=== PATIENT | female | born 1955 | race Caucasian/White ===

== ENCOUNTER 2017-12-12 14:47 | Inpatient (IN) ==
--- NOTE | 2017-12-12 15:13 | Emergency Department Report ---
SOB HPI - General Chief Complaint: Shortness of Breath/Dyspnea <Dexter Pugh Q - 12/13/17 06:28 > Stated Complaint: soa <Dexter Pugh Q - 12/13/17 06:28> Time Seen by Provider: 12/12/17 15:07 <Dexter Pugh Q - 12/13/17 06:28> Source: patient <Kaylee Castle - 12/12/17 15:13> - History of Present Illness Patient is a 62-year-old female who presents to the emergency room with her or shortness of breath. On presentation her O2 sat is 81%. With 4 L she comes up to 90%. At home she usually only uses oxygen at night with her CPAP, although reports for the past 2 months she has been using some oxygen off and on during the day. 5-6 days ago she had a 24-hour "GI bug" with nausea and vomiting. Since that time, she has had decreasing strength, increasing shortness of breath and body aches. She's had chills and felt hot and cold. She states she's been trying to drink but has not been eating much. She complains of some chest tightness as well. Her states that at home with exertion her O2 sat will drop down to 81%. She has a neuroendocrine cancer diagnosed in May 2017. She had a tumor removed in the infrahilar region. She has finished chemotherapy approximately a month ago. She has one radiation treatment left which she explains as a preventative radiation to her brain. <Kaylee Castle - 12/12/17 23:49> Complaint: shortness of breath <Kaylee Castle - 12/12/17 23:49> - Related Data Home oxygen amount: 2 liters (with CPAP at bedtime) <Kaylee Castle - 12/12/17 23:49> Home Medications Medication Instructions Recorded Confirmed Alendronate [Fosamax] 70 mg PO DAVILA #0 08/20/10 12/12/17 Albuterol Sulfate [Proair Hfa] 1 puff INH Q4H PRN 05/31/17 12/12/17 Ascorbic Acid [Vitamin C] 1,000 mg PO DAILY 05/31/17 12/12/17 Aspirin [Adult Low Dose Aspirin EC] 81 mg PO HS 05/31/17 12/12/17 Cholecalciferol (Vitamin D3) 1,000 unit PO DAILY 05/31/17 12/12/17 [Vitamin D3] Dabigatran [Pradaxa] 150 mg PO BID 05/31/17 12/12/17 Fluticasone Nasal [place] [Flonase] 1 spray EA NOSTRIL HS 05/31/17 12/12/17 Fluticasone/Salmeterol 500/50 1 puff INH BID 05/31/17 12/12/17 [Advair 500-50Diskus] Levothyroxine Tab [Synthroid] 150 mcg PO HS 05/31/17 12/12/17 Metoprolol Succinate (XL) [Toprol 50 mg PO HS 05/31/17 12/12/17 Xl] Montelukast Sodium [Singulair] 10 mg PO DAILY 05/31/17 12/12/17 Simvastatin 20 mg PO HS 05/31/17 12/12/17 Tiotropium [place] [Spiriva 1 puff INH DAILY 05/31/17 12/12/17 Respimat] LORazepam [Lorazepam] 1 mg PO Q8H PRN 12/12/17 12/12/17 Ondansetron HCl 8 mg PO TID PRN 12/12/17 12/12/17 <Dexter Pugh Q - 12/13/17 06:28> Allergies Allergy/AdvReac Type Severity Reaction Status Date / Time Penicillins Allergy Unknown Verified 12/12/17 15:10 <Dexter Pugh Q - 12/13/17 06:28> Review of Systems All systems: reviewed and negative except as stated (shortness of breath, chills , body aches, weakness, chest tightness off and on) <Kaylee Castle - 12/12/17 23:49> [facility] Patient Stated Medical History Transient Ischemic Attacks ( Yes: 2016 TIA) Cataracts Yes Cardiac Arrhythmia Yes: AFIB Myocardial Infarction Yes: 1993 and 2002 Chronic Obstructive Pulmonary Yes Disease (COPD) Pneumonia Yes Hiatal Hernia Yes Hx Urinary Tract Infection Yes Clotting Problems Yes: PRADAXA Osteoarthritis Yes: HANDS <Dexter Pugh Q - 12/13/17 06:28> Surgical History: Lymph node biopsy from left chest-05/2017 <Kaylee Castle - 15:13> - Social History Smoking status: Former smoker (quit "a long time ago") [facility]> Substance use type: does not use <[facility] 12/12/17 15:13> Alcohol intake frequency: does not drink <Kaylee Castle 12/12/17 15:13> Household members: spouse <[facility] 12/12/17 23:49> Current occupational status: retired <[facility] 12/12/17 23:49> Current residence: Apartment/Private Home <[facility] 12/12/17 23:49> Social history: PCP-Dr. Arnold Oil Filters Inspector-Dr. Santizo Medical Receptionist Assistant-Dr. Santizo Elementary Tutor-Dr. Araceli Paiz Oncologist-Dr. Jaya López <[facility] 12/12/17 23:49> Physical Exam - Limitations Limitations: no limitations (conversational dyspnea) <[facility] 23:49> - General General appearance: in no apparent distress (some respiratory distress) < [facility] - Normal Exams: Head:: Normocephalic without trauma <[facility] 12/12/17 23:49> Eyes:: Pupils are PERRLA w/ EOMI <[facility] 12/12/17 23:49> Neck:: Full range of motion, without adenopathy <[facility] 12/12/17 23: 49> Abdomen:: soft, non-tender, non-distended <[facility] 12/12/17 23:49> Integumentary:: No rashes <[facility] 12/12/17 23:49> Neurological:: Patient is alert, and oriented, exams w/o gross deficits < [facility] 12/12/17 23:49> Psychiatric:: Patient exhibits, appropriate attention, emotion and affect < [facility] 12/12/17 23:49> - Respiratory Respiratory exam: Present: respiratory distress, wheezes, other (decreased breath sounds). Absent: normal lung sounds bilaterally <Kaylee Castle - 12/12 23:49> - Cardiovascular Cardiovascular exam: Present: tachycardia, irregular rhythm <Kaylee Castle - 12/12/17 23:49> - Extremities Exam Extremities exam: Absent: pedal edema <Kaylee Castle - 12/12/17 23:49> Course Vital Signs Temperature 98.4 F 12/12/17 14:55 Pulse Rate 134 H 12/12/17 14:55 Respiratory Rate 30 H 12/12/17 14:55 Blood Pressure 166/81 H 12/12/17 14:55 Pulse Oximetry 81 L 12/12/17 14:55 Temperature 98.4 F 12/12/17 14:55 Pulse Rate 71 12/13/17 02:00 Respiratory Rate 18 12/13/17 05:06 Blood Pressure 127/64 12/13/17 02:00 Pulse Oximetry 94 12/13/17 05:06 <Dexter Pugh - 12/13/17 06:28> Vital Signs Temperature 98.4 F 12/12/17 14:55 Pulse Rate 134 H 12/12/17 14:55 Respiratory Rate 30 H 12/12/17 14:55 Blood Pressure 166/81 H 12/12/17 14:55 Pulse Oximetry 81 L 12/12/17 14:55 Temperature 98.4 F 12/12/17 14:55 Pulse Rate 71 12/13/17 02:00 Respiratory Rate 18 12/13/17 05:06 Blood Pressure 127/64 12/13/17 02:00 Pulse Oximetry 94 12/13/17 05:06 <Kaylee Castle - 12/12/17 15:32> Shortness of Breath/Dyspnea - MDM Narrative Medical decision making narrative: Patient with exacerbation of her COPD and respiratory failure with hypoxia. Respiratory panel negative. She was given Solu -Medrol 125 mg in the ED and 2 DuoNeb treatments with minimal improvement. She was given labetalol 10 for a-fib with RVR with rates in the 140s. Her rate decreased to 100 following the labetalol. Given her respiratory failure and decline, she was admitted inpatient to the hospitalist service. <Kaylee Castle - 12/12/17 23:49> - Lab Data Attestation: I reviewed the patient's lab results. <Kaylee Castle L - 12/12/17 23:49> Result diagrams: 12/13/17 04:12 12/13/17 04:12 <Dexter Pugh Q - 12/13/17 06:28> Lab Results 12/12/17 12/12/17 12/12/17 Range/Units 15:39 16:16 16:16 WBC 7.4 (4.5-11.0) T/MM3 RBC 3.31 L (4.00-5.20) M/MM3 Hgb 10.8 L (12-16) GM/DL Hct 33.7 L (36-46) % MCV 101.8 H (80-100) UM3 MCH 32.6 (26-34) UUG MCHC 32.0 (31-37) GM/DL RDW Std Deviation 51.2 H (36.9-50.2) FL Plt Count 202 (130-400) T/MM3 MPV 9.2 L (9.4-12.4) UM3 Immature Gran % (Auto) 0.3 (0.0-0.5) % Neut % (Auto) 76.9 H (33-66) % Lymph % (Auto) 8.7 L (23-45) % [place] % (Auto) 12.2 H (0-9.0) % Eos % (Auto) 1.6 (0-4) % Baso % (Auto) 0.3 (0-2) % Neut # (Auto) 5.7 (1.8-7.7) T/MM3 Lymph # (Auto) 0.7 L (1-4.8) T/MM3 [place] # (Auto) 0.9 H (0-0.8) T/MM3 Eos # (Auto) 0.1 (0-0.5) T/MM3 Baso # (Auto) 0.0 (0-0.2) T/MM3 Abs Immat Gran (auto) 0.02 (0.00-0.03) T/MM3 Turbidity < 20 (0-20) Sodium 135 (134-144) MEQ/L Potassium 4.6 (3.6-5) MEQ/L Chloride 93 L (98-107) MEQ/L Carbon Dioxide 31 H (22-30) MEQ/L Anion Gap 11 (5-15) MEQ/L BUN 11.0 (7-17) MG/DL Creatinine 0.6 L (0.7-1.2) mg/dL GFR Calculation 101 BUN/Creatinine Ratio 18 (6-26) RATIO Glucose 121 H (65-110) MG/DL Calculated Osmolality 260 L (261-280) MOSM/KG Calcium 10.3 H (8.4-10.2) MG/DL Total Bilirubin 0.60 (0.20-1.30) MG/DL Icterus Index < 2 (0-7) AST 27 (14-36) U/L ALT 27 (9-52) U/L Alkaline Phosphatase 103 (38-126) U/L Troponin I < 0.012 (0-0.12) ng/ml NT-Pro-B Natriuret Pep 1890 H (0-175) pg/mL Total Protein 7.7 (6.3-8.2) g/dL Albumin 4.3 (3.5-5.0) g/dL Globulin 3.4 (2.4-3.6) G/DL Albumin/Globulin Ratio 1.3 (1.1-2.2) RATIO Specimen Hemolysis 63 H (0-25) Ur Collection Type Urine Color (YELLOW) Urine Clarity Urine pH (5.0-8.0) Ur Specific [place] (1.015-1.025) Urine Protein (NEGATIVE) Urine Glucose (UA) (NEGATIVE) Urine Ketones (NEGATIVE) Urine Occult Blood (NEGATIVE) Urine Nitrate (NEGATIVE) Urine Bilirubin (NEGATIVE) Urine Urobilinogen (NORMAL) EU/DL Ur Leukocyte Esterase (NEGATIVE) Urinalysis Comment Adenovirus (PCR) Negative (Negative) B.parapertussis DNA PCR Negative (Negative) C. pneumoniae DNA (PCR) Negative (Negative) Coronavirus OC43 (PCR) Negative (Negative) Coronavirus HKU1 (PCR) Negative (Negative) Coronavirus 229E (PCR) Negative (Negative) Coronavirus NL63 (PCR) Negative (Negative) Human Metapneumovir PCR Negative (Negative) Influenza Type A (PCR) Negative (Negative) Influenza Type B (PCR) Negative (Negative) M. pneumoniae (PCR) Negative (Negative) Parainfluenza 1 (PCR) Negative (Negative) Parainfluenza 2 (PCR) Negative (Negative) Parainfluenza 3 (PCR) Negative (Negative) Parainfluenza 4 (PCR) Negative (Negative) RSV (PCR) Negative (Negative) Entero/Rhino (PCR) Negative (Negative) 12/12/17 Range/Units 17:25 WBC (4.5-11.0) T/MM3 RBC (4.00-5.20) M/MM3 Hgb (12-16) GM/DL Hct (36-46) % MCV (80-100) UM3 MCH (26-34) UUG MCHC (31-37) GM/DL RDW Std Deviation (36.9-50.2) FL Plt Count (130-400) T/MM3 MPV (9.4-12.4) UM3 Immature Gran % (Auto) (0.0-0.5) % Neut % (Auto) (33-66) % Lymph % (Auto) (23-45) % [place] % (Auto) (0-9.0) % Eos % (Auto) (0-4) % Baso % (Auto) (0-2) % Neut # (Auto) (1.8-7.7) T/MM3 Lymph # (Auto) (1-4.8) T/MM3 [place] # (Auto) (0-0.8) T/MM3 Eos # (Auto) (0-0.5) T/MM3 Baso # (Auto) (0-0.2) T/MM3 Abs Immat Gran (auto) (0.00-0.03) T/MM3 Turbidity (0-20) Sodium (134-144) MEQ/L Potassium (3.6-5) MEQ/L Chloride (98-107) MEQ/L Carbon Dioxide (22-30) MEQ/L Anion Gap (5-15) MEQ/L BUN (7-17) MG/DL Creatinine (0.7-1.2) mg/dL GFR Calculation BUN/Creatinine Ratio (6-26) RATIO Glucose (65-110) MG/DL Calculated Osmolality (261-280) MOSM/KG Calcium (8.4-10.2) MG/DL Total Bilirubin (0.20-1.30) MG/DL Icterus Index (0-7) AST (14-36) U/L ALT (9-52) U/L Alkaline Phosphatase (38-126) U/L Troponin I (0-0.12) ng/ml NT-Pro-B Natriuret Pep (0-175) pg/mL Total Protein (6.3-8.2) g/dL Albumin (3.5-5.0) g/dL Globulin (2.4-3.6) G/DL Albumin/Globulin Ratio (1.1-2.2) RATIO Specimen Hemolysis (0-25) Ur Collection Type Urine, void-cc/notcc Urine Color Yellow (YELLOW) Urine Clarity Clear Urine pH 6.0 (5.0-8.0) Ur Specific [place] 1.020 (1.015-1.025) Urine Protein Trace A (NEGATIVE) Urine Glucose (UA) Negative (NEGATIVE) Urine Ketones 1+ A (NEGATIVE) Urine Occult Blood Negative (NEGATIVE) Urine Nitrate Negative (NEGATIVE) Urine Bilirubin Negative (NEGATIVE) Urine Urobilinogen 0.2 (NORMAL) EU/DL Ur Leukocyte Esterase Negative (NEGATIVE) Urinalysis Comment Microscopic not ind. Adenovirus (PCR) (Negative) B.parapertussis DNA PCR (Negative) C. pneumoniae DNA (PCR) (Negative) Coronavirus OC43 (PCR) (Negative) Coronavirus HKU1 (PCR) (Negative) Coronavirus 229E (PCR) (Negative) Coronavirus NL63 (PCR) (Negative) Human Metapneumovir PCR (Negative) Influenza Type A (PCR) (Negative) Influenza Type B (PCR) (Negative) M. pneumoniae (PCR) (Negative) Parainfluenza 1 (PCR) (Negative) Parainfluenza 2 (PCR) (Negative) Parainfluenza 3 (PCR) (Negative) Parainfluenza 4 (PCR) (Negative) RSV (PCR) (Negative) Entero/Rhino (PCR) (Negative) <Dexter Pugh Q - 12/13/17 06:28> Lab Results 12/12/17 12/12/17 12/12/17 Range/Units 15:39 16:16 16:16 WBC 7.4 (4.5-11.0) T/MM3 RBC 3.31 L (4.00-5.20) M/MM3 Hgb 10.8 L (12-16) GM/DL Hct 33.7 L (36-46) % MCV 101.8 H (80-100) UM3 MCH 32.6 (26-34) UUG MCHC 32.0 (31-37) GM/DL RDW Std Deviation 51.2 H (36.9-50.2) FL Plt Count 202 (130-400) T/MM3 MPV 9.2 L (9.4-12.4) UM3 Immature Gran % (Auto) 0.3 (0.0-0.5) % Neut % (Auto) 76.9 H (33-66) % Lymph % (Auto) 8.7 L (23-45) % [place] % (Auto) 12.2 H (0-9.0) % Eos % (Auto) 1.6 (0-4) % Baso % (Auto) 0.3 (0-2) % Neut # (Auto) 5.7 (1.8-7.7) T/MM3 Lymph # (Auto) 0.7 L (1-4.8) T/MM3 [place] # (Auto) 0.9 H (0-0.8) T/MM3 Eos # (Auto) 0.1 (0-0.5) T/MM3 Baso # (Auto) 0.0 (0-0.2) T/MM3 Abs Immat Gran (auto) 0.02 (0.00-0.03) T/MM3 Turbidity < 20 (0-20) Sodium 135 (134-144) MEQ/L Potassium 4.6 (3.6-5) MEQ/L Chloride 93 L (98-107) MEQ/L Carbon Dioxide 31 H (22-30) MEQ/L Anion Gap 11 (5-15) MEQ/L BUN 11.0 (7-17) MG/DL Creatinine 0.6 L (0.7-1.2) mg/dL GFR Calculation 101 BUN/Creatinine Ratio 18 (6-26) RATIO Glucose 121 H (65-110) MG/DL Calculated Osmolality 260 L (261-280) MOSM/KG Calcium 10.3 H (8.4-10.2) MG/DL Total Bilirubin 0.60 (0.20-1.30) MG/DL Icterus Index < 2 (0-7) AST 27 (14-36) U/L ALT 27 (9-52) U/L Alkaline Phosphatase 103 (38-126) U/L Troponin I < 0.012 (0-0.12) ng/ml NT-Pro-B Natriuret Pep 1890 H (0-175) pg/mL Total Protein 7.7 (6.3-8.2) g/dL Albumin 4.3 (3.5-5.0) g/dL Globulin 3.4 (2.4-3.6) G/DL Albumin/Globulin Ratio 1.3 (1.1-2.2) RATIO Specimen Hemolysis 63 H (0-25) Ur Collection Type Urine Color (YELLOW) Urine Clarity Urine pH (5.0-8.0) Ur Specific [place] (1.015-1.025) Urine Protein (NEGATIVE) Urine Glucose (UA) (NEGATIVE) Urine Ketones (NEGATIVE) Urine Occult Blood (NEGATIVE) Urine Nitrate (NEGATIVE) Urine Bilirubin (NEGATIVE) Urine Urobilinogen (NORMAL) EU/DL Ur Leukocyte Esterase (NEGATIVE) Urinalysis Comment Adenovirus (PCR) Negative (Negative) B.parapertussis DNA PCR Negative (Negative) C. pneumoniae DNA (PCR) Negative (Negative) Coronavirus OC43 (PCR) Negative (Negative) Coronavirus HKU1 (PCR) Negative (Negative) Coronavirus 229E (PCR) Negative (Negative) Coronavirus NL63 (PCR) Negative (Negative) Human Metapneumovir PCR Negative (Negative) Influenza Type A (PCR) Negative (Negative) Influenza Type B (PCR) Negative (Negative) M. pneumoniae (PCR) Negative (Negative) Parainfluenza 1 (PCR) Negative (Negative) Parainfluenza 2 (PCR) Negative (Negative) Parainfluenza 3 (PCR) Negative (Negative) Parainfluenza 4 (PCR) Negative (Negative) RSV (PCR) Negative (Negative) Entero/Rhino (PCR) Negative (Negative) 12/12/17 Range/Units 17:25 WBC (4.5-11.0) T/MM3 RBC (4.00-5.20) M/MM3 Hgb (12-16) GM/DL Hct (36-46) % MCV (80-100) UM3 MCH (26-34) UUG MCHC (31-37) GM/DL RDW Std Deviation (36.9-50.2) FL Plt Count (130-400) T/MM3 MPV (9.4-12.4) UM3 Immature Gran % (Auto) (0.0-0.5) % Neut % (Auto) (33-66) % Lymph % (Auto) (23-45) % [place] % (Auto) (0-9.0) % Eos % (Auto) (0-4) % Baso % (Auto) (0-2) % Neut # (Auto) (1.8-7.7) T/MM3 Lymph # (Auto) (1-4.8) T/MM3 [place] # (Auto) (0-0.8) T/MM3 Eos # (Auto) (0-0.5) T/MM3 Baso # (Auto) (0-0.2) T/MM3 Abs Immat Gran (auto) (0.00-0.03) T/MM3 Turbidity (0-20) Sodium (134-144) MEQ/L Potassium (3.6-5) MEQ/L Chloride (98-107) MEQ/L Carbon Dioxide (22-30) MEQ/L Anion Gap (5-15) MEQ/L BUN (7-17) MG/DL Creatinine (0.7-1.2) mg/dL GFR Calculation BUN/Creatinine Ratio (6-26) RATIO Glucose (65-110) MG/DL Calculated Osmolality (261-280) MOSM/KG Calcium (8.4-10.2) MG/DL Total Bilirubin (0.20-1.30) MG/DL Icterus Index (0-7) AST (14-36) U/L ALT (9-52) U/L Alkaline Phosphatase (38-126) U/L Troponin I (0-0.12) ng/ml NT-Pro-B Natriuret Pep (0-175) pg/mL Total Protein (6.3-8.2) g/dL Albumin (3.5-5.0) g/dL Globulin (2.4-3.6) G/DL Albumin/Globulin Ratio (1.1-2.2) RATIO Specimen Hemolysis (0-25) Ur Collection Type Urine, void-cc/notcc Urine Color Yellow (YELLOW) Urine Clarity Clear Urine pH 6.0 (5.0-8.0) Ur Specific [place] 1.020 (1.015-1.025) Urine Protein Trace A (NEGATIVE) Urine Glucose (UA) Negative (NEGATIVE) Urine Ketones 1+ A (NEGATIVE) Urine Occult Blood Negative (NEGATIVE) Urine Nitrate Negative (NEGATIVE) Urine Bilirubin Negative (NEGATIVE) Urine Urobilinogen 0.2 (NORMAL) EU/DL Ur Leukocyte Esterase Negative (NEGATIVE) Urinalysis Comment Microscopic not ind. Adenovirus (PCR) (Negative) B.parapertussis DNA PCR (Negative) C. pneumoniae DNA (PCR) (Negative) Coronavirus OC43 (PCR) (Negative) Coronavirus HKU1 (PCR) (Negative) Coronavirus 229E (PCR) (Negative) Coronavirus NL63 (PCR) (Negative) Human Metapneumovir PCR (Negative) Influenza Type A (PCR) (Negative) Influenza Type B (PCR) (Negative) M. pneumoniae (PCR) (Negative) Parainfluenza 1 (PCR) (Negative) Parainfluenza 2 (PCR) (Negative) Parainfluenza 3 (PCR) (Negative) Parainfluenza 4 (PCR) (Negative) RSV (PCR) (Negative) Entero/Rhino (PCR) (Negative) <CastleKaylee 12/12/17 15:32> - Radiology Data Attestation: I reviewed the patient's radiology results. <Kaylee Castle 09/19 23:49> - EKG Data EKG #1 EKG attestation: Yes: I reviewed and interpreted this EKG. <Dexter Pugh 12/13/17 06:28> Rate: normal <Dexter Pugh 12/13/17 06:28> Rhythm: A.Fib <Dexter Pugh 12/13/17 06:28> [place]/QRS: normal <Dexter Pugh 12/13/17 06:28> Interpretation: no acute changes <Dexter Pugh 12/13/17 06:28> Disposition Clinical Impression: Respiratory failure <Dexter Pugh 12/13/17 06:28> [place] [facility] [place] <Dexter Pugh 12/13/17 06:28> Condition: Stable <Dexter Pugh 12/13/17 06:28> Instructions: <Dexter Pugh 12/13/17 06:28> Prescriptions: Continue Alendronate [Fosamax] 70 mg PO DAVILA #0 Ascorbic Acid [Vitamin C] 1,000 mg PO DAILY Aspirin [Adult Low Dose Aspirin EC] 81 mg PO HS Fluticasone Nasal [place] [Flonase] 1 spray EA NOSTRIL HS Simvastatin 20 mg PO HS Metoprolol Succinate (XL) [Toprol Xl] 50 mg PO HS Fluticasone/Salmeterol 500/50 [Advair 500-50Diskus] 1 puff INH BID Tiotropium [place] [Spiriva Respimat] 1 puff INH DAILY Levothyroxine Tab [Synthroid] 150 mcg PO HS Ondansetron HCl 8 mg PO TID PRN PRN Reason: Nausea &/Or Vomiting Cholecalciferol (Vitamin D3) [Vitamin D3] 1,000 unit PO DAILY Albuterol Sulfate [Proair Hfa] 1 puff INH Q4H PRN PRN Reason: Prn Orders Dabigatran [Pradaxa] 150 mg PO BID Montelukast Sodium [Singulair] 10 mg PO DAILY LORazepam [Lorazepam] 1 mg PO Q8H PRN PRN Reason: Prn Orders <Dexter Pugh Q - 12/13/17 06:28> Referrals: Lavon Arnold MD [Family Provider] - <Dexter Pugh Q - 06:28> Forms: <Dexter Pugh Q - 12/13/17 06:28> - Seen By: midlevel <Kaylee Castle - 12/12/17 18:31>
[2017-12-12] MEDS ORDERED: NS 1,000 ML IV ONE (15:28)
[2017-12-12] MEDS ORDERED: ALBUTEROL/IPRATROPIUM 2.5mg-0.5mg/3ml NEB AEROSOL ONE ×2 (15:29→17:22)
[2017-12-12] MEDS ORDERED: LABETALOL 100mg/20ml INJECTION IVP ONE (15:30)
[2017-12-12] MEDS ORDERED: METHYLPREDNISOLONE SOD SUCC 125mg/2ml INJECTION IVP ONE (15:43)
--- NOTE | 2017-12-12 16:09 | XRay Report ---
Indication: soa PROCEDURE: XR chest 1V: Encounter: Initial Comparison: Chest CT dated November 08, 2017 Findings: Chronic elevation of the left hemidiaphragm with left basilar scarring. There is mild interstitial prominence without a focal lobar consolidation. No pleural effusion or pneumothorax. Heart size and mediastinal contours are stable with a moderate to severely enlarged cardiac silhouette. Impression: Mild interstitial prominence could relate to mild vascular congestion or atypical/viral pneumonia. .
[2017-12-12] MEDS: SALINE FLUSH 10ml SYRINGE IVF PRN ×2 (16:42→18:11)
--- NOTE | 2017-12-12 18:33 | History & Physical Report ---
History of Present Illness Date: 12/12/17 Chief complaint: shortness of breath HPI: Yamilex Sinha is a 62 y/o woman who finished chemo and has 9/10 radiation treatments completed for small cell carcinoma of the lung. She has had some residual weakness, achiness, myalgias, headaches, dizziness, and loss of appetite from her chemo/radiation regimen, under the direction of Dr. Jaya López. However, she became much worse on 12/06/17, on which day both her and her , Zeus, awoke with a "24-hour bug" and had nausea, poor appetite, and achiness. His symptoms resolved in about a day, and her symptoms almost went away, but then she became much more short of breath. She's been needing oxygen around the clock since diagnosed with cancer last fall, and her wonders if the concentrator needs calibration b/c he's had to increase the flow rate from 3 to 4L. Over the last several days, she's become significantly more short of breath. She's been weaker and dizzy/lightheaded. She nearly fell a couple days ago, but decided to sit back down before injuring herself. She has a chronic cough, which is usually productive -- now, however, nothing is coming up. She's had sinus congestion/drainage. She denies chest pain or palpitations. She states that sometimes her right leg swells up for a couple weeks at a time then spontaneously improves - this last happened about a week ago. She has a hx of DVT and this does not feel like a DVT -- plus she's on Pradaxa for A-fib. She has not been eating much but has been drinking fluids ok. She denies dysuria but states her urine output has gone down. No constipation or diarrhea. She was seen in the ED on 12/12/17, and initial saturation was 81% on room air. She was in a-fib with RVR, rate of 134. She was tachypneic ranging from 30-40s. She was afebrile. Troponin was negative. WBC was normal at 7.4, hgb 10.8, MCV elevated at 101.8. CMP showed carbon dioxide of 31 and a slightly high calcium at 10.3, otherwise was essentially unremarkable. Pro BNP was 1890. UA was negative for UTI. Respiratory viral panel was negative. CXR showed mild interstitial prominence. Despite receiving DuoNeb x2, Solu-Medrol, and Ativan, she remained tachypneic and dyspneic. She was also given labetalol for tachycardia, which brought her rate down to 90-110s during evaluation. Dr. Stark was contacted, and Yamilex was admitted to inpatient status for acute hypoxic respiratory failure (will need BiPAP support), COPD exacerbation, and A- fib with RVR. LOS is expected to exceed 2 overnights. Review of Systems All systems PM: 10-point ROS was reviewed, no additional remarkable complaints except - Constitutional Constitutional: Present: anorexia, weakness. Absent: chills, fever(s), increased appetite - EENMT Eyes: Present: other (cataracts) Nose: Absent: obstruction Mouth/Throat: Absent: sore throat - Cardiovascular Cardiovascular: Present: dyspnea on exertion. Absent: chest pain Vascular: Present: unilateral swelling (right leg - intermittent) - Respiratory Respiratory: Present: cough, dyspnea - Gastrointestinal Gastrointestinal: Absent: abdominal pain, constipation, diarrhea, nausea, vomiting - Genitourinary Genitourinary: Present: other (not voiding as often as usual). Absent: dysuria - Musculoskeletal Musculoskeletal: Present: muscle weakness, myalgias - Integumentary/Breasts Integumentary: Absent: lesions, non-healing lesions, rash, wounds - Neurological Neurological: Present: dizziness, weakness. Absent: confusion, frequent falls ( fell 2 days ago), numbness, paresthesias - Psychiatric Psychiatric: Absent: anxiety - Endocrine Endocrine: Absent: palpitations - Hematologic/Lymphatic Hematologic/Lymphatic: Present: easy bruising - Allergic/Immunologic Allergic/Immunologic: Present: seasonal rhinorrhea Past Medical History DVT 2010 A-fib, on Pradaxa CAD, hx of [place] HTN TIA 2016 Small cell carcinoma of lung, neuroendocrine tumor; completed 4 rounds of chemotherapy with Cisplat and VP16, 06/12 brain radiation treatments completed moderate COPD requiring chronic O2 (GOLD 3) JOBY, on CPAP Hyperlipidemia GERD Allergic rhinitis Osteoporosis Cataracts Surgical History: Surgery for thoracic outlet syndrome (age 24). . Cholecystectomy 2006. Colonoscopy 2006. Mediastinoscopy/chamberlain procedure with biopsy 05/25/17 with path showing high grade neuroendocrine tumor cuggestive of small cell carcinoma Family History Updates: Father had a brain/neuroendocrine condition and committed suicide b/c of that. Her mother is still alive and healthy, her age is 85. Greatgrandmother had a malignat brain tumor; at age 81. Maternal grandmother at age 85 of old age. One sister at an early age after a car hit her. She has 3 living sisters who are healthy to her knowledge. 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 Lavon Arnold Onc _ Dr. Jaya Riley CV _ Dr. Santizo Pulconstance _ Dr. Paiz Ophtho _ Dr. Santizo Medications Home Medications Medication Instructions Recorded Confirmed Type Alendronate [Fosamax] 70 mg PO DAVILA #0 08/20/10 12/12/17 History Albuterol Sulfate [Proair Hfa] 1 puff INH Q4H PRN 05/31/17 12/12/17 History Ascorbic Acid [Vitamin C] 1,000 mg PO DAILY 05/31/17 12/12/17 History Aspirin [Adult Low Dose Aspirin EC] 81 mg PO HS 05/31/17 12/12/17 History Cholecalciferol (Vitamin D3) 1,000 unit PO DAILY 05/31/17 12/12/17 History [Vitamin D3] Dabigatran [Pradaxa] 150 mg PO BID 05/31/17 12/12/17 History Fluticasone [place] [Flonase] 1 spray EA NOSTRIL HS 05/31/17 12/12/17 History Fluticasone/Salmeterol 500/50 1 puff INH BID 05/31/17 12/12/17 History [Advair 500-50Diskus] Levothyroxine Tab [Synthroid] 150 mcg PO HS 05/31/17 12/12/17 History Metoprolol Succinate (XL) [Toprol 50 mg PO HS 05/31/17 12/12/17 History Xl] Montelukast Sodium [Singulair] 10 mg PO DAILY 05/31/17 12/12/17 History Simvastatin 20 mg PO HS 05/31/17 12/12/17 History Tiotropium Jones [Spiriva 1 puff INH DAILY 05/31/17 12/12/17 History Respimat] LORazepam [Lorazepam] 1 mg PO Q8H PRN 12/12/17 12/12/17 History Ondansetron HCl 8 mg PO TID PRN 12/12/17 12/12/17 History Allergies Allergy/AdvReac Type Severity Reaction Status Date / Time Penicillins Allergy Unknown Verified 12/12/17 15:10 Exam Vital Signs: Temperature 98.4 F 12/12/17 14:55 Pulse Rate 134 H 12/12/17 14:55 Respiratory Rate 24 12/12/17 17:30 Blood Pressure 166/81 H 12/12/17 14:55 Pulse Oximetry 99 12/12/17 17:30 Telemetry Rhythm: A-fib with RVR Height/Weight/BMI: Height 1.63 m Weight 98.8 kg - Constitutional Present: mild distress, well nourished, well developed, obese - Routine HEENT Exam Head: Present: normocephalic Eye: Present: PERRL, conjunctivae pink (small amount of crusted drainage on eyelashes of right eye). Absent: conjunctival icterus, scleral injection, periorbital swelling ENT: Present: oropharynx clear - Routine Neck Exam Present: supple, lymphadenopathy - Routine Respiratory Exam Present: accessory muscle use, decreased breath sounds, prolonged expiratory phase, diminished air movement - Routine Cardiovascular Exam Present: tachycardia, irregularly irregular - Routine Abdominal Exam Present: soft, non tender, distended. Absent: normoactive bowel sounds ( hypoactive) - Routine Extremities Exam Present: no edema, pulses intact - Routine Skin Exam Present: intact, dry, warm - Routine Neurological Exam Present: alert, oriented X3, CN II-XII intact, vision grossly intact, hearing grossly intact, normal speech - Routine Psychiatric Exam Present: normal affect, normal thought process, cooperative Results - Labs CBC & Chem 7: 12/12/17 16:16 12/12/17 16:16 Assessment and Plan Assessment and Plan: IMPRESSION Acute hypoxic respiratory failure/COPD exacerbation, requiring BIPAP support A-fib with RVR, on Pradaxa Macrocytic anemia DVT 2009 CAD, hx of [place] HTN TIA 2016 Small cell carcinoma of lung, neuroendocrine tumor; completed 4 rounds of chemotherapy with Cisplat and VP16, 06/12 brain radiation treatments completed moderate COPD requiring chronic O2 (GOLD 3) JOBY, on CPAP Hyperlipidemia GERD Allergic rhinitis Osteoporosis Cataracts PLAN Admit, inpt status to CCU. Given tachypnea and dyspnea, there is concern for impending failure. Will check ABG and ask RT to place her on BiPAP. Continue with steroids; Solu-Medrol 125 mg QID; DuoNeb; acapella. Morphine/ ativan PRN air hunger. Consider pulm consultation. Trend troponin; monitor tele. Resume Pradaxa and metoprolol. May need to slow rate with diltiazem vs. IV BB. Reports poor oral intake and oliguria. This combined with RVR raises concerns about dehydration - will give 1L NS @ 100 mL/hr. Macrocytic anemia - check iron studies, b12, and folate. Consult CM to sign/notarize DPOA naming as her surrogate decision maker. Code status: Full code. Discussed with Dr. Stark. PCP _ Dr. Lavon Arnold Onc _ Dr. Jaya Riley CV _ Dr. Santizo Pulm _ Dr. Paiz DVT Prophylaxis: Pradaxa Resuscitation Status: Full Code - Physician Narrative Physician: Kimi Stark MD Narrative: Date: 12/12/17 Time: 2229 I have independently evaluated and examined this patient. I reviewed the chart, the patient's history, and the ACCOUNT MANAGER RELIEF/PA's documented findings as above. We discussed and formulated the assessment and plan as above with additions as below: Mrs. Sinha was seen with her although were still in the emergency room a couple of hours ago. The patient describes recent URI symptoms with increasing dyspnea and minimally productive cough. Oxygen demand has been increasing progressively. She had persistent tachycardia in the ER in addition to tachypnea and moderate respiratory distress prompting decision to admit to the ICU so she could be monitored very closely. Respirations were moderately labored at the time of my evaluation, soft spoken and speaking in phrases but not full sentences Crackles one third up the posterior lung bautista on inspiration/expiration, no wheezing appreciated; moderately-tachypnic Irregular cardiac rhythm, heart rate about 110 during my evaluation Patient reports she did not miss doses of medications this morning for atrial fibrillation; unclear if tachyarrhythmia contributing to dyspnea or dyspnea triggering tachyarrhythmia although suspect the latter. BiPAP/steroids/beta agonist therapy for COPD exacerbation. Chest x-ray reviewed by myself-no evidence of failure/infiltrate. May need to increase metoprolol slightly or add diltiazem orally. Discussed with Dr. Pugh; EKG reviewed by myself-no acute changes. Hospital Course Summary Disclaimer: The visit summary below is not to be considered part of the above Progress Note. Hospital Course: 12.12.17 Admit, inpt status to CCU. Given tachypnea and dyspnea, there is concern for impending failure. Will check ABG and ask RT to place her on BiPAP. Continue with steroids; Solu-Medrol 125 mg QID; DuoNeb; acapella. Morphine/ ativan PRN air hunger. Consider pulm consultation. Trend troponin; monitor tele. Resume Pradaxa and metoprolol. May need to slow rate with diltiazem vs. IV BB. Reports poor oral intake and oliguria. This combined with RVR raises concerns about dehydration - will give 1L NS @ 100 mL/hr. Macrocytic anemia - check iron studies, b12, and folate. Consult CM to sign/notarize DPOA naming as her surrogate decision maker.
[2017-12-12] MEDS ORDERED: ALBUTEROL/IPRATROPIUM 2.5mg-0.5mg/3ml NEB AEROSOL PRN (18:56)
[2017-12-12] MEDS ORDERED: ONDANSETRON 4 MG/2 ML INJECTION IVP PRN (19:21)
[2017-12-12 19:30] VITALS: BMI 37.5
[2017-12-12] MEDS: ACETAMINOPHEN 325 MG TABLET PO PRN (19:39)
[2017-12-12] MEDS: NS 1,000 ML IV SCH (19:50)
[2017-12-12] MEDS: ASPIRIN *EC* 81 MG TABLET PO SCH (20:39)
[2017-12-12] MEDS: SIMVASTATIN 20 MG TABLET PO SCH (20:40)
[2017-12-12] MEDS: FLUTICASONE NASAL SPRAY 50mcg EA NOSTRIL SCH (20:40)
[2017-12-12] MEDS: LEVOTHYROXINE 150 MCG TABLET PO SCH (20:40)
[2017-12-12] MEDS: METHYLPREDNISOLONE SOD SUCC 125mg/2ml INJECTION IVP SCH (22:40)
[2017-12-13] MEDS: ALBUTEROL/IPRATROPIUM 2.5mg-0.5mg/3ml NEB AEROSOL SCH ×8 (01:00→23:39)
[2017-12-13] MEDS: METHYLPREDNISOLONE SOD SUCC 125mg/2ml INJECTION IVP SCH ×4 (03:50→20:28)
[2017-12-13] MEDS: NS 1,000 ML IV SCH ×2 (05:24→16:03)
[2017-12-13] MEDS: MONTELUKAST 10 MG TABLET PO SCH (10:24)
[2017-12-13] MEDS ORDERED: INSULIN ASPART 100unit/ml INJECTION SQ PRN (12:10)
--- NOTE | 2017-12-13 12:11 | Progress Note ---
- Date 12/13/17 Subjective: Mrs. Sinha reports her breathing is significantly improved this morning and that cough is not as frequent. She has rare sputum production with cough. She denies chest pain or palpitations, has no nausea and reports her appetite is coming back. She denies pain other than "old lady pain". She is urinating without difficulty and this had no lightheadedness or dizziness. She tolerated BiPAP well and feels that helped her breathing significantly overnight. She complained of headache early in the night however after sleeping headache is fully resolved. Objective Vital signs: Temperature 97.2 F 12/13/17 08:00 Pulse Rate 86 12/13/17 10:00 Respiratory Rate 35 H 12/13/17 10:00 Blood Pressure 129/78 12/13/17 08:00 Pulse Oximetry 95 -4 L 12/13/17 10:00 EXAM General-NAD, alert, fluent speech HEENT-conjunctiva clear, sclera anicteric, EOMI Lungs-respirations nonlabored, good airflow, breath sounds are clear except very faint crackles at the bases posteriorly; no wheezing present Cardiac-irregular rhythm, S1-S2, rate improved from admission Abd-obese, soft, nontender, diminished bowel sounds Ext-trace edema bilateral ankles Neuro-MAEW Psych-calm, cooperative, cheerful - Height/Weight/BMI: Height 1.63 m Weight 98.5 kg Body Mass Index 37.5 Results - Labs CBC & Chem 7: 12/13/17 04:12 12/13/17 04:12 Labs: Troponin < 0.012-0.017-<0.012 - ABG Interpretation ABG results: 12/12/17 19:26 ABG pH 7.392 ABG pCO2 46 H ABG pO2 81.6 ABG HCO3 28.0 H ABG Total CO2 29.4 H ABG O2 Saturation 95.7 ABG Base Excess 2.5 H Assessment and Plan (1) Acute respiratory failure with hypoxia Current visit: Yes Status: Acute Assessment and Plan: IMPRESSION Acute hypoxic respiratory failure COPD exacerbation, requiring BIPAP support A-fib with RVR, on Pradaxa Macrocytic anemia DVT 2009 CAD, hx of [place] HTN TIA 2016 Small cell carcinoma of lung, neuroendocrine tumor; completed 4 rounds of chemotherapy with Cisplat and VP16, 06/12 brain radiation treatments completed moderate COPD requiring chronic O2 (GOLD 3) JOBY, on CPAP Hyperlipidemia GERD Allergic rhinitis Osteoporosis Cataracts PLAN Doing well clinically, heart rate improved overnight using BiPAP which also resulted in improvement in labored respirations. No indication of pneumonia or overt heart failure; probable viral COPD exacerbation triggered by viral URI (respiratory viral panel negative but viral prodrome present) Stable to transfer out of ICU, continue IV steroids, BIPAP when necessary while awake and at bedtime, and aggressive beta agonist therapy. Chest x-ray in a.m. Appetite improved, nutritional supplements ordered as per home regimen. Continue telemetry, no need for acute cardiac interventions or alteration in chronic medications for atrial fibrillation. Hemoglobin stable, iron studies/B-12/folic acid pending. DVT Prophylaxis: Pradaxa Resuscitation Status: Full Code - Physician Narrative Narrative: Date: 12/13/17 Time: 1207 Hospital Course Summary Disclaimer: The visit summary below is not to be considered part of the above Progress Note. Hospital Course: 12/12/17 Admit, inpt status to CCU. Given tachypnea and dyspnea, there is concern for impending failure. Will check ABG and ask RT to place her on BiPAP. Continue with steroids; Solu-Medrol 125 mg QID; DuoNeb; acapella. Morphine/ ativan PRN air hunger. Consider pulm consultation. Trend troponin; monitor tele. Resume Pradaxa and metoprolol. May need to slow rate with diltiazem vs. IV BB. Reports poor oral intake and oliguria. This combined with RVR raises concerns about dehydration - will give 1L NS @ 100 mL/hr. Macrocytic anemia - check iron studies, b12, and folate. Consult CM to sign/notarize DPOA naming as her surrogate decision maker. 12/13/17 Doing well clinically, heart rate improved overnight using BiPAP which also resulted in improvement in labored respirations. No indication of pneumonia or overt heart failure; probable viral COPD exacerbation triggered by viral URI (respiratory viral panel negative but viral prodrome present) Stable to transfer out of ICU, continue IV steroids, BIPAP when necessary while awake and at bedtime, and aggressive beta agonist therapy. Chest x-ray in a.m. Continue telemetry, no need for acute cardiac interventions or alteration in chronic medications for atrial fibrillation. Hemoglobin stable, iron studies/B-12/folic acid pending.
[2017-12-13] MEDS ORDERED: SALINE 0.65% NASAL SPRAY 44 ML BOTTLE EA NOSTRIL PRN (14:10)
[2017-12-13] MEDS: SALINE FLUSH 10ml SYRINGE IVF PRN (14:34)
[2017-12-13] MEDS: TIOTROPIUM 18mcg/cap HANDIHALER ORAL INH SCH (14:36)
[2017-12-13] MEDS: DiltiaZEM IR 30 MG TABLET PO PRN (18:08)
[2017-12-13] MEDS: ACETAMINOPHEN 325 MG TABLET PO PRN (19:02)
[2017-12-13] MEDS: FLUTICASONE NASAL SPRAY 50mcg EA NOSTRIL SCH (20:27)
[2017-12-13] MEDS: SIMVASTATIN 20 MG TABLET PO SCH (20:28)
[2017-12-13] MEDS: ASPIRIN *EC* 81 MG TABLET PO SCH (20:28)
[2017-12-13] MEDS: LEVOTHYROXINE 150 MCG TABLET PO SCH (20:28)
[2017-12-14] MEDS: NS 1,000 ML IV SCH (01:52)
[2017-12-14] MEDS: METHYLPREDNISOLONE SOD SUCC 125mg/2ml INJECTION IVP SCH ×4 (02:22→20:29)
[2017-12-14] MEDS: ALBUTEROL/IPRATROPIUM 2.5mg-0.5mg/3ml NEB AEROSOL SCH ×6 (03:11→23:15)
[2017-12-14] MEDS: ACETAMINOPHEN 325 MG TABLET PO PRN ×3 (04:52→22:21)
--- NOTE | 2017-12-14 08:46 | XRay Report ---
INDICATION: COPD exac PROCEDURE: CHEST 2-VIEWS UPRIGHT (PA & LAT) Encounter: Initial COMPARISON: Chest x-ray dated December 12, [address] dated November 08, 2017 FINDINGS: Scarring in the left upper lobe again seen. Mild interstitial prominence and mild emphysema. No new or worsening consolidation. No pleural effusion or pneumothorax. Elevated left hemidiaphragm. Cardiac silhouette remains enlarged. Mediastinal contours are stable. Pulmonary vascularity is stable. Impression: Stable appearance of the chest. .
[2017-12-14] MEDS: HYDROCODONE/APAP 5mg/325mg TABLET PO PRN (09:12)
[2017-12-14] MEDS: MONTELUKAST 10 MG TABLET PO SCH (09:12)
[2017-12-14] MEDS: LORazepam 1 MG TABLET PO PRN (09:34)
[2017-12-14] MEDS: TIOTROPIUM 18mcg/cap HANDIHALER ORAL INH SCH (09:43)
[2017-12-14] MEDS: MORPHINE SULFATE 2mg INJECTION IVP PRN (10:13)
--- NOTE | 2017-12-14 11:05 | Progress Note ---
- Date 12/14/17 Subjective: Leola is seen today in follow up. She is having a "terrible day". She reports that her breathing seems worse and she is noted to be having more wheezing today. She complains of having nasal congestion and is frustrated that she cannot breathe comfortably out of her nose. She complains of having a headache that she attributes to decreased amount of sleep overnight. She appears emotional and anxious and generalized fatigue. is at the bedside and he does note she seems worse today than yesterday. We discussed the plan utilizing nasal spray to help with her nasal congestion. Will given Braggadocio and Ativan for headache and anxiety. Encourage patient to attempt to rest this afternoon. RT is at the bedside to give additional breathing inhalers and nebulizers. Objective Vital signs: Temperature 98.3 F 12/14/17 08:00 Pulse Rate 94 12/14/17 08:00 Respiratory Rate 24 12/14/17 09:44 Blood Pressure 156/86 H 12/14/17 08:00 Pulse Oximetry 93 12/14/17 08:00 Height/Weight/BMI: Height 1.63 m Weight 98.6 kg Body Mass Index 37.5 - Constitutional Present: mild distress, well nourished, well developed - Routine HEENT Exam Eye: Present: EOMI ENT: Present: mucous membranes moist, dentition normal - Routine Respiratory Exam Present: wheezes - Routine Cardiovascular Exam Present: RRR, S1, S2. Absent: murmur - Routine Abdominal Exam Present: soft, normoactive bowel sounds, non distended. Absent: tenderness - Routine Extremities Exam Present: normal capillary refill - Routine Skin Exam Present: intact, dry, warm - Routine Neurological Exam Present: alert, oriented X3, CN II-XII intact - Routine Lymphatic Exam Lymphatic: Absent: adenopathy - Routine Psychiatric Exam Present: normal affect, anxious Results - Labs CBC & Chem 7: 12/14/17 04:38 12/14/17 04:38 - ABG Interpretation ABG results: 12/12/17 19:26 ABG pH 7.392 ABG pCO2 46 H ABG pO2 81.6 ABG HCO3 28.0 H ABG Total CO2 29.4 H ABG O2 Saturation 95.7 ABG Base Excess 2.5 H Assessment and Plan (1) Acute respiratory failure with hypoxia Current visit: Yes Status: Acute Assessment and Plan: IMPRESSION Acute hypoxic respiratory failure COPD exacerbation, requiring BIPAP support A-fib with RVR, on Pradaxa Macrocytic anemia DVT 2010 CAD, hx of [place] HTN TIA 2016 Small cell carcinoma of lung, neuroendocrine tumor; completed 4 rounds of chemotherapy with Cisplat and VP16, 06/12 brain radiation treatments completed moderate COPD requiring chronic O2 (GOLD 3) JOBY, on CPAP Hyperlipidemia GERD Allergic rhinitis Osteoporosis Cataracts PLAN Recheck a Chest X-ray now. Spoke with Rt at the bedside. Will give Advair and Spiriva now. Will then follow with albuterol neb if needed. Encourage use of Flonase nasal congestion Encourage nursing staff to utilize Braggadocio and morphine for pain control and treat headache. She may have Ativan as needed for anxiety. At this point will continue with Solu-Medrol every 6 hours. Will discontinue IV fluids given increased wheezing. Detailed overall, patient is fatigued due to her lack of sleep. Will treat current headache, Encourage rest today and reevaluate later Will discuss further orders and plan of care with attending, Dr. Grant 12/14/2017-1 PM-I reviewed this chart, the patient history, and the NEEDLE LOOM TENDER's/PA's documented findings as above. We discussed and formulated the assessment and plan as above with the additions below.-Dr. Grant I saw the patient in her room late this morning. She complained of feeling more short of breath today than yesterday. Currently she is on 3-1/2 L of oxygen with O2 sat of 96%. Heart rate is in the high 90s and she is in A. fib which is chronic. She complains of chronic nasal congestion which has been lifelong. She states she has required continuous O2 at home for the past 2 weeks. She states she's been using it intermittently during the day since July 2017, but before that she only used it at night that her CPAP. She is wanting a portable concentrator so she can more easily leave the house. She has a mild cough but it is nonproductive. On exam she is alert and oriented and in no acute distress. HEENT reveals oropharynx to be moist. Neck is supple. Chest reveals end expiratory wheezes throughout. Cardiovascular reveals an irregularly irregular rhythm with a borderline tachycardic rate. Abdomen is soft and nontender. Extremities are free of edema. Lab reveals borderline low B 12 of 343. Calcium is mildly elevated at 10.3. Potassium is 5.3 but specimen is hemolyzed. She had chest x-rays 2 today which revealed some mild interstitial prominence and mild emphysema. Some scarring in the left upper lobe. No new or worsening consolidations. No pleural effusions or pneumothorax. She has a chronically elevated left hemidiaphragm. I did view the films and agree. Impression and plan Acute hypoxic respiratory failure-we'll consult Dr. Law regarding worsening respiratory failure Probable COPD exacerbation-continue steroids and breathing treatments for now. Chest x-ray shows no new findings. History of DVT -on chronic anticoagulation with Pradaxa Chronic A. fib-on chronic anticoagulation with Pradaxa A. fib with RVR on admission-rate now controlled Add guaifenesin for chronic nasal congestion Small cell/neuroendocrine tumor for which she has finished chemotherapy and has completed 9 of 10 brain radiation treatments Macrocytic anemia with borderline low B 12-add oral B 12 - Physician Narrative Narrative: Date: 12/14/17 Time: 1059 Hospital Course Summary Disclaimer: The visit summary below is not to be considered part of the above Progress Note. Hospital Course: 12/12/17 Admit, inpt status to CCU. Given tachypnea and dyspnea, there is concern for impending failure. Will check ABG and ask RT to place her on BiPAP. Continue with steroids; Solu-Medrol 125 mg QID; DuoNeb; acapella. Morphine/ ativan PRN air hunger. Consider pulm consultation. Trend troponin; monitor tele. Resume Pradaxa and metoprolol. May need to slow rate with diltiazem vs. IV BB. Reports poor oral intake and oliguria. This combined with RVR raises concerns about dehydration - will give 1L NS @ 100 mL/hr. Macrocytic anemia - check iron studies, b12, and folate. Consult CM to sign/notarize DPOA naming as her surrogate decision maker. 12/13/17 Doing well clinically, heart rate improved overnight using BiPAP which also resulted in improvement in labored respirations. No indication of pneumonia or overt heart failure; probable viral COPD exacerbation triggered by viral URI (respiratory viral panel negative but viral prodrome present) Stable to transfer out of ICU, continue IV steroids, BIPAP when necessary while awake and at bedtime, and aggressive beta agonist therapy. Chest x-ray in a.m. Continue telemetry, no need for acute cardiac interventions or alteration in chronic medications for atrial fibrillation. Hemoglobin stable, iron studies/B-12/folic acid pending. 12/14 Recheck a Chest X-ray now. Spoke with Rt at the bedside. Will give Advair and Spiriva now. Will then follow with albuterol neb if needed. Encourage use of Flonase nasal congestion Encourage nursing staff to utilize Braggadocio and morphine for pain control and treat headache. She may have Ativan as needed for anxiety. At this point will continue with Solu-Medrol every 6 hours. Will continue IV fluids given increased wheezing. Detailed overall, patient is fatigued due to her lack of sleep. Will treat current headache, Encourage rest today and reevaluate later Will discuss further orders and plan of care with attending, Dr. Grant
--- NOTE | 2017-12-14 11:28 | XRay Report ---
INDICATION: increased wheezing PROCEDURE: CHEST 2-VIEWS UPRIGHT (PA & LAT) Encounter: Initial COMPARISON: December 14, 2017 at 0623 FINDINGS: Lungs are stable in appearance. No new or worsening airspace disease. No pneumothorax or pleural effusion. Cardiac silhouette remains enlarged. Multiple surgical clips again noted along with an elevated left hemidiaphragm. Mediastinal contours are stable. Impression: Stable appearance of the chest without focal pneumonia or overt congestive failure. .
--- NOTE | 2017-12-14 16:58 | Pulmonology Consult Note ---
History of Present Illness Consult date: 12/14/17 Requesting physician: Sarah Grant Reason for consult: dyspnea, cough, COPD Chief complaint: SOB History of present illness: This is a 62 yo female witha Hx of COPD and SCLCa. She finished chemo in September with radiation to chest. Currently getting brain radiation 06/[address] Jaya López. She does c/o weakness, achiness, myalgias, headaches, dizziness, and loss of appetite from her chemo/radiation regimen, under the direction of Dr. Jaya López. She states she has had increased SOB for the past week which on 12/06/17, she woke with a "24-hour bug" and had nausea, poor appetite, and achiness and her symptoms became worse with much more SOB. She was seen in the ED on 12/12/17, and initial saturation was 81 % on room air. She was in a-fib with RVR, rate of 134. She was tachypneic ranging from 30-40s. She was afebrile. Troponin was negative. WBC was normal at 7.4, hgb 10.8, MCV elevated at 101.8. CMP showed carbon dioxide of 31 and a slightly high calcium at 10.3, otherwise was essentially unremarkable. Pro BNP was 1890. UA was negative for UTI. Respiratory viral panel was negative. CXR showed mild interstitial prominence. Despite receiving DuoNeb x2, Solu-Medrol, and Ativan, she remained tachypneic and dyspneic. She was admitted to the hospital for further cares. We have been consulted for her pulmonary issues and appreciate the consult. Review of Systems - Constitutional Constitutional: Present: as per HPI - EENT Eyes: Absent: blurry vision, change in vision Nose: Absent: change in smell Mouth/Throat: Present: mucosa dry - Cardiovascular Cardiovascular: Present: dyspnea on exertion. Absent: chest pain, palpitations - Respiratory Respiratory: Present: cough, dyspnea, dyspnea on exertion - Gastrointestinal Gastrointestinal: Absent: abdominal pain, change in bowel habits - Genitourinary Genitourinary: Absent: difficulty urinating - Musculoskeletal Musculoskeletal: Present: other. Absent: abnormal gait, atrophy Additional comments: weakness - Neurological Neurological: Absent: abnormal gait, abnormal movements, abnormal speech - Psychiatric Psychiatric: Present: anxiety. Absent: abnormal sleep pattern - Endocrine Endocrine: Absent: cold intolerance, excessive sweating - Hematologic/Lymphatic Hematologic/Lymphatic: Absent: easy bleeding, easy bruising - Allergic/Immunologic Allergic/Immunologic: Absent: tongue swelling, throat swelling [facility] Patient Stated Medical History Transient Ischemic Attacks ( Yes: 2016 TIA) Cataracts Yes Hearing Loss Yes: Due to radiation tx Cardiac Arrhythmia Yes: AFIB Myocardial Infarction Yes: 1993 and 2002 Chronic Obstructive Pulmonary Yes Disease (COPD) Pneumonia Yes Other Respiratory Yes: Small cell carcinoma (current) Hiatal Hernia Yes Hx Urinary Tract Infection Yes Clotting Problems Yes: PRADAXA Osteoarthritis Yes: HANDS Surgical History: Lymph node biopsy from left chest-05/2017 Family History Updates: Father had a brain/neuroendocrine condition and committed suicide b/c of that. Her mother is still alive and healthy, her age is 85. Greatgrandmother had a malignat brain tumor; at age 81. Maternal grandmother at age 85 of old age. One sister at an early age after a car hit her. She has 3 living sisters who are healthy to her knowledge. 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 Current residence: Apartment/Private Home Medications Home Medications Medication Instructions Recorded Confirmed Type Alendronate [Fosamax] 70 mg PO DAVILA #0 08/20/10 12/12/17 History Albuterol Sulfate [Proair Hfa] 1 puff INH Q4H PRN 05/31/17 12/12/17 History Ascorbic Acid [Vitamin C] 1,000 mg PO DAILY 05/31/17 12/12/17 History Aspirin [Adult Low Dose Aspirin EC] 81 mg PO HS 05/31/17 12/12/17 History Cholecalciferol (Vitamin D3) 1,000 unit PO DAILY 05/31/17 12/12/17 History [Vitamin D3] Dabigatran [Pradaxa] 150 mg PO BID 05/31/17 12/12/17 History Fluticasone Nasal [place] [Flonase] 1 spray EA NOSTRIL HS 05/31/17 12/12/17 History Fluticasone/Salmeterol 500/50 1 puff INH BID 05/31/17 12/12/17 History [Advair 500-50Diskus] Levothyroxine Tab [Synthroid] 150 mcg PO HS 05/31/17 12/12/17 History Metoprolol Succinate (XL) [Toprol 50 mg PO HS 05/31/17 12/12/17 History Xl] Montelukast Sodium [Singulair] 10 mg PO DAILY 05/31/17 12/12/17 History Simvastatin 20 mg PO HS 05/31/17 12/12/17 History Tiotropium [place] [Spiriva 1 puff INH DAILY 05/31/17 12/12/17 History Respimat] LORazepam [Lorazepam] 1 mg PO Q8H PRN 12/12/17 12/12/17 History Ondansetron HCl 8 mg PO TID PRN 12/12/17 12/12/17 History Allergies Allergy/AdvReac Type Severity Reaction Status Date / Time Penicillins Allergy Unknown Verified 12/12/17 15:10 Exam Vital signs: Temperature 98.5 F 12/14/17 15:51 Pulse Rate 91 12/14/17 16:00 Respiratory Rate 24 12/14/17 15:51 Blood Pressure 126/80 12/14/17 15:51 Pulse Oximetry 92 12/14/17 15:51 - Constitutional mild distress, morbidly obese, cooperative - Routine HEENT Exam Head: Present: normocephalic, atraumatic Eye: Present: EOMI, PERRL ENT: Present: mucous membranes dry Nose: moist mucous membranes - Routine Neck Exam Present: supple, full ROM, trachea midline - Routine Respiratory Exam Present: decreased breath sounds. Absent: patient mechanically ventilated, respiratory distress - Routine Cardiovascular Exam Present: S1, S2, no murmur - Routine Abdominal Exam Present: soft, normoactive bowel sounds - Routine Extremities Exam Present: no edema, non tender, full ROM. Absent: cyanosis, clubbing - Routine Back/Spine/Pelvis Exam Back/Spine: Present: full ROM - Routine Skin Exam Present: intact, dry - Routine Neurological Exam Present: alert, oriented X3, CN II-XII intact - Routine Psychiatric Exam Present: normal affect, normal thought process Results - Laboratory Findings CBC and BMP: 12/14/17 04:38 12/14/17 04:38 ABG ABG pH 7.392 (7.350-7.450) 12/12/17 19:26 ABG pCO2 46 MMHG (34.0-45.0) H 12/12/17 19:26 ABG pO2 81.6 MMHG (80.0-100.0) 12/12/17 19:26 ABG O2 Saturation 95.7 % (95.0-98.0) 12/12/17 19:26 Abnormal lab findings: Abnormal Labs 12/12/17 12/12/17 12/13/17 19:26 22:39 04:12 WBC 3.5 L D RBC 3.06 L Hgb 10.0 L Hct 31.0 L MCV 101.3 H MPV 9.2 L Neutrophils % (Manual) 87.0 H Lymphocytes % (Manual) 11.0 L Neutrophils # (Manual) Lymphocytes # (Manual) 0.4 L ABG pCO2 46 H ABG HCO3 28.0 H ABG Total CO2 29.4 H ABG Base Excess 2.5 H Potassium Creatinine Glucose Calcium Iron 24 L TIBC 225 L Folate > 20.0 H Specimen Hemolysis 12/13/17 12/14/17 12/14/17 04:12 04:38 04:38 WBC RBC 2.96 L Hgb 9.6 L Hct 29.8 L MCV 100.7 H MPV Neutrophils % (Manual) 95.0 H Lymphocytes % (Manual) 1.0 L Neutrophils # (Manual) 9.9 H Lymphocytes # (Manual) 0.1 L ABG pCO2 ABG HCO3 ABG Total CO2 ABG Base Excess Potassium 5.3 H D Creatinine 0.5 L 0.5 L Glucose 164 H 189 H Calcium 10.3 H Iron TIBC Folate Specimen Hemolysis 105 H - Diagnostic Findings Chest x-ray: image reviewed (CXR: cardiomegaly, no acute abnormality) Assessment and Plan - Assessment and Plan Acute on Chronic Hypoxic Respiratory Failure COPD exacerbation SCLCa Atrial fibrillation Plan: Pt currently on O2 at 5L per NC (uses 3-4L at home), wean to keep sats 90-95%. Bipap prn for SOB F12, 09/07. Currently on A/A q4hr, solumedrol 125mg q6hr, will change advair to pulmicort BID. On metoprolol, cardizem and pradaxa for atrial fib, follow. - Time Spent With Patient Total time spent is greater than 50% in coordination of care (as documented) at patient's floor/unit and/or counseling patient: 25 - 35 minutes
[2017-12-14] MEDS: DiltiaZEM IR 30 MG TABLET PO PRN (18:36)
[2017-12-14] MEDS: BUDESONIDE INH.SOLN 0.5mg/2ml NEB AEROSOL SCH (18:55)
[2017-12-14] MEDS: GUAIFENESIN LA 600 MG TABLET PO SCH (20:28)
[2017-12-14] MEDS: ASPIRIN *EC* 81 MG TABLET PO SCH (20:28)
[2017-12-14] MEDS: SIMVASTATIN 20 MG TABLET PO SCH (20:28)
[2017-12-14] MEDS: FLUTICASONE NASAL SPRAY 50mcg EA NOSTRIL SCH (20:29)
[2017-12-14] MEDS: LEVOTHYROXINE 150 MCG TABLET PO SCH (20:29)
[2017-12-15] MEDS: MORPHINE SULFATE 2mg INJECTION IVP PRN ×3 (00:10→12:00)
[2017-12-15] MEDS: LORazepam 1 MG TABLET PO PRN ×3 (02:23→21:02)
[2017-12-15] MEDS: METHYLPREDNISOLONE SOD SUCC 125mg/2ml INJECTION IVP SCH ×4 (02:26→20:55)
[2017-12-15] MEDS: ALBUTEROL/IPRATROPIUM 2.5mg-0.5mg/3ml NEB AEROSOL SCH ×6 (03:45→23:25)
[2017-12-15] MEDS: BUDESONIDE INH.SOLN 0.5mg/2ml NEB AEROSOL SCH ×2 (07:35→19:10)
[2017-12-15] MEDS: MONTELUKAST 10 MG TABLET PO SCH (08:36)
[2017-12-15] MEDS: GUAIFENESIN LA 600 MG TABLET PO SCH ×2 (08:36→20:54)
[2017-12-15] MEDS: CYANOCOBALAMIN (B-12) 500mcg TABLET PO SCH (08:36)
[2017-12-15] MEDS: SALINE FLUSH 10ml SYRINGE IVF PRN ×2 (08:37→20:55)
--- NOTE | 2017-12-15 12:51 | Progress Note ---
- Date 12/15/17 Subjective: Patient was seen early this afternoon in her room. She was sleeping comfortably. She awakened without difficulties. She states her breathing is a little bit better than yesterday. She states she has had some frontal headaches ever since starting radiation treatment to her brain. She has chronic nasal congestion which is unchanged. She has some chronic right foot numbness which she has had for 6 or 7 years. Otherwise, she has no numbness, tingling or weakness. Her appetite has been okay. She is urinating without difficulties. She has not had a bowel movement but does not feel constipated. She has no other complaints. Objective Vital signs: Temperature 97.8 F 12/15/17 07:15 Pulse Rate 95 12/15/17 08:00 Respiratory Rate 24 12/15/17 07:35 Blood Pressure 144/87 H 12/15/17 07:15 Pulse Oximetry 93 12/15/17 07:35 Height/Weight/BMI: Height 1.63 m Weight 102.2 kg Body Mass Index 37.5 Comments: GEN-alert, oriented, no acute distress HEENT-sclera anicteric, pupils are equal, oropharynx is moist NECK-supple CV-regular rate and rhythm CHEST-end expiratory wheezes throughout the lung bautista ABD-soft, nontender with positive bowel sounds -no [place] EXT-no edema NEURO-cranial nerves II through XII grossly intact other than some mild droop at the right corner of mouth, motor strength 5 over 5 and equal in upper and lower extremities SKIN-warm and dry and without rashes Results - Labs CBC & Chem 7: 12/15/17 04:18 12/15/17 04:18 Labs: Blood sugar ranging from 153-197. Calcium 10.3. Assessment and Plan (1) Acute respiratory failure with hypoxia Current visit: Yes Status: Acute Assessment and Plan: IMPRESSION Acute hypoxic respiratory failure-improving COPD exacerbation, requiring BIPAP intermittently A-fib with RVR, on Pradaxa-currently rate controlled Macrocytic anemia DVT 2009 CAD, hx of [place] HTN TIA 2016 Small cell carcinoma of lung, neuroendocrine tumor; completed 4 rounds of chemotherapy with Cisplat and VP16, 06/12 brain radiation treatments completed moderate COPD requiring chronic O2 (GOLD 3) JOBY, on CPAP at home, can restart CPAP here as tolerated Hyperlipidemia GERD Allergic rhinitis Osteoporosis Cataracts Mild hypercalcemia Hyperglycemia secondary to steroids Macrocytic anemia with borderline low B 12 Mild hypercalcemia PLAN Regarding COPD exacerbation, the patient is feeling a little bit better today. Appreciate Dr. Law's consult. We'll continue steroids, breathing treatments and supplemental oxygen. The patient is interested in outpatient pulmonary rehabilitation, but wants to discuss it first with her extension course coordinator PT NATE paez and treat Supplemental insulin as needed for hyperglycemia Continue Pradaxa for A. fib and history of DVT Continue metoprolol and when necessary oral diltiazem for rate control with A. fib Restart CPAP tonight if tolerated, can revert back to BiPAP if needed Recheck CBC and basic metabolic profile tomorrow. I did call and talk with Dr. Riley, the patient's oncologist, regarding the fact that she missed her 10th and last brain radiation treatment and that she has been having frontal headache since initiating brain radiation tx's. He stated that was not unusual and no further workup needed at this time. DVT Prophylaxis: Pradaxa Resuscitation Status: Full Code - Time spent with patient Time with patient PN: 25 minutes - Physician Narrative Narrative: Date: 12/15/17 Time: 1248 Hospital Course Summary Disclaimer: The visit summary below is not to be considered part of the above Progress Note. Hospital Course: 12/12/17 Admit, inpt status to CCU. Given tachypnea and dyspnea, there is concern for impending failure. Will check ABG and ask RT to place her on BiPAP. Continue with steroids; Solu-Medrol 125 mg QID; DuoNeb; acapella. Morphine/ ativan PRN air hunger. Consider pulm consultation. Trend troponin; monitor tele. Resume Pradaxa and metoprolol. May need to slow rate with diltiazem vs. IV BB. Reports poor oral intake and oliguria. This combined with RVR raises concerns about dehydration - will give 1L NS @ 100 mL/hr. Macrocytic anemia - check iron studies, b12, and folate. Consult CM to sign/notarize DPOA naming as her surrogate decision maker. 12/13/17 Doing well clinically, heart rate improved overnight using BiPAP which also resulted in improvement in labored respirations. No indication of pneumonia or overt heart failure; probable viral COPD exacerbation triggered by viral URI (respiratory viral panel negative but viral prodrome present) Stable to transfer out of ICU, continue IV steroids, BIPAP when necessary while awake and at bedtime, and aggressive beta agonist therapy. Chest x-ray in a.m. Continue telemetry, no need for acute cardiac interventions or alteration in chronic medications for atrial fibrillation. Hemoglobin stable, iron studies/B-12/folic acid pending. 12/14 Recheck a Chest X-ray now. Spoke with Rt at the bedside. Will give Advair and Spiriva now. Will then follow with albuterol neb if needed. Encourage use of Flonase nasal congestion Encourage nursing staff to utilize [place] and morphine for pain control and treat headache. She may have Ativan as needed for anxiety. At this point will continue with Solu-Medrol every 6 hours. Will continue IV fluids given increased wheezing. Detailed overall, patient is fatigued due to her lack of sleep. Will treat current headache, Encourage rest today and reevaluate later Will discuss further orders and plan of care with attending, Dr. Grant
[2017-12-15] MEDS: SIMVASTATIN 20 MG TABLET PO SCH (20:55)
[2017-12-15] MEDS: LEVOTHYROXINE 150 MCG TABLET PO SCH (20:55)
[2017-12-15] MEDS: ASPIRIN *EC* 81 MG TABLET PO SCH (20:55)
[2017-12-15] MEDS: FLUTICASONE NASAL SPRAY 50mcg EA NOSTRIL SCH (21:05)
[2017-12-16] MEDS: SALINE FLUSH 10ml SYRINGE IVF PRN ×5 (00:43→20:43)
[2017-12-16] MEDS: MORPHINE SULFATE 2mg INJECTION IVP PRN (00:44)
[2017-12-16] MEDS: METHYLPREDNISOLONE SOD SUCC 125mg/2ml INJECTION IVP SCH ×3 (02:34→18:09)
[2017-12-16] MEDS: ALBUTEROL/IPRATROPIUM 2.5mg-0.5mg/3ml NEB AEROSOL SCH ×6 (02:54→22:54)
[2017-12-16] MEDS: HYDROCODONE/APAP 5mg/325mg TABLET PO PRN ×2 (05:13→20:41)
[2017-12-16] MEDS: BUDESONIDE INH.SOLN 0.5mg/2ml NEB AEROSOL SCH ×2 (06:55→19:36)
[2017-12-16] MEDS: CYANOCOBALAMIN (B-12) 500mcg TABLET PO SCH (08:54)
[2017-12-16] MEDS: MONTELUKAST 10 MG TABLET PO SCH (08:54)
[2017-12-16] MEDS: GUAIFENESIN LA 600 MG TABLET PO SCH ×2 (08:55→20:42)
[2017-12-16] MEDS: LORazepam 1 MG TABLET PO PRN (08:55)
--- NOTE | 2017-12-16 11:35 | Pulmonology Progress Note ---
Subjective Principal diagnosis: SOB Interval history: Pt in bed, just finished washing up. + cough, no sputum, cont SOB. Exam Vital signs: Temperature 97.9 F 12/16/17 07:00 Pulse Rate 92 12/16/17 07:00 Respiratory Rate 24 12/16/17 10:40 Blood Pressure 160/120 H 12/16/17 07:28 Pulse Oximetry 96 12/16/17 10:40 Inpatient Medications: Generic Name Dose Route Start Last Admin Trade Name Freq PRN Reason Stop Dose Admin Acetaminophen 650 mg 12/12/17 19:21 12/14/17 22:21 Tylenol PO 650 mg Q5H PRN Administration Discomfort Hydrocodone Bitart/Acetaminophen 1 tab 12/12/17 21:22 12/16/17 05:13 [place] 5/325 PO 1 tab Q4H PRN Administration Pain Albuterol/Ipratropium 3 ml 12/12/17 18:56 12/12/17 19:05 Duoneb AEROSOL 3 ml O PRN Administration Albuterol/Ipratropium 3 ml 12/12/17 19:21 12/16/17 10:40 Duoneb AEROSOL 3 ml Q4H JOYCE Administration Aspirin 81 mg 12/12/17 21:00 12/15/17 20:55 Ecotrin PO 81 mg HS JOYCE Administration Budesonide 0.5 mg 12/14/17 19:00 12/16/17 06:55 Pulmicort Inhalation AEROSOL 0.5 mg RTBID JOYCE Administration Cyanocobalamin 1,000 mcg 12/15/17 09:00 12/16/17 08:54 Vit. B-12 PO 1,000 mcg DAILY JOYCE Administration Dabigatran 150 mg 12/12/17 21:00 12/16/17 08:54 Pradaxa PO 150 mg BID JOYCE Administration Diltiazem HCl 30 mg 12/12/17 20:57 12/14/17 18:36 Cardizem Ir 30 Mg Tab PO 30 mg Q6H PRN Administration For Heart Rate > than 100 Fluticasone Propionate 1 spray 12/12/17 21:00 12/15/17 21:05 Flonase EA NOSTRIL 1 spray HS JOYCE Administration Guaifenesin 1,200 mg 12/14/17 21:00 12/16/17 08:55 Mucinex La PO 1,200 mg BID JOYCE Administration Insulin Aspart 1 - 5 unit 12/13/17 12:10 Novolog SQ SS PRN Hyperglycemia Protocol Levothyroxine Sodium 150 mcg 12/12/17 21:00 12/15/17 20:55 Synthroid PO 150 mcg HS JOYCE Administration Lorazepam 1 mg 12/12/17 19:21 12/16/17 08:55 Ativan PO 1 mg Q8H PRN Administration PRN orders Lorazepam 0.5 mg 12/12/17 19:21 12/15/17 00:08 Ativan Inj IVP 0.5 mg Q6H PRN Administration Air hunger Methylprednisolone Sodium Succinate 125 mg 12/12/17 21:00 12/16/17 08:54 Solu-Medrol IVP 125 mg Q6HR JOYCE Administration Metoprolol Succinate 50 mg 12/12/17 21:00 12/15/17 20:54 Toprol Xl PO 50 mg HS JOYCE Administration Montelukast Sodium 10 mg 12/13/17 09:00 12/16/17 08:54 Singulair PO 10 mg DAILY JOYCE Administration Morphine Sulfate 2 mg 12/12/17 19:21 12/16/17 00:44 Morphine Sulfate Inj IVP 2 mg Q2H PRN Administration Air hunger Ondansetron HCl 4 mg 12/12/17 19:21 Zofran IVP Q4H PRN Nausea &/or vomiting Simvastatin 20 mg 12/12/17 21:00 12/15/17 20:55 Zocor PO 20 mg HS JOYCE Administration Sodium Chloride 10 - 80 ml 12/12/17 15:46 12/16/17 08:56 Iv Flush IVF 10 ml PRN PRN Administration Flushing Sodium Chloride 1 spray 12/13/17 14:10 12/15/17 16:54 Deep Sea Nasal Moisturizing [place] EA NOSTRIL 1 spray PRN PRN Administration Congestion Discontinued Medications Generic Name Dose Route Start Last Admin Trade Name Freq PRN Reason Stop Dose Admin Albuterol/Ipratropium 3 ml 12/12/17 15:29 12/12/17 15:47 Duoneb AEROSOL 12/12/17 15:30 3 ml O ONE Administration Albuterol/Ipratropium 3 ml 12/12/17 17:22 12/12/17 17:27 Duoneb AEROSOL 12/12/17 17:23 3 ml O ONE Administration Sodium Chloride 1,000 mls @ 999.9 mls/hr 12/12/17 15:28 12/12/17 17:40 Normal Saline IV 12/12/17 16:27 Infused .Q1H ONE Infusion Sodium Chloride 1,000 mls @ 100 mls/hr 12/12/17 19:21 12/14/17 11:12 Normal Saline IV Infused .Q10H JOYCE Infusion Labetalol HCl 10 mg 12/12/17 15:30 12/12/17 16:41 Trandate IVP 12/12/17 15:31 10 mg O ONE Administration Lorazepam 0.5 mg 12/12/17 17:58 12/12/17 18:09 Ativan Inj IVP 12/12/17 17:59 0.5 mg O ONE Administration Methylprednisolone Sodium Succinate 125 mg 12/12/17 15:43 12/12/17 16:41 Solu-Medrol IVP 12/12/17 15:44 125 mg O ONE Administration Fluticasone/Salmeterol 1 each 12/12/17 21:00 12/14/17 11:00 Advair Diskus ORAL INH 1 each BID JOYCE Administration Tiotropium Lav[place] 1 cap 12/13/17 09:00 12/14/17 09:43 Spiriva ORAL INH 1 cap DAILY JOYCE Administration - Constitutional mild distress, morbidly obese, cooperative - Routine HEENT Exam Head: Present: normocephalic, atraumatic Eye: Present: EOMI, PERRL ENT: Present: mucous membranes moist - Routine Neck Exam Present: supple, full ROM, trachea midline - Routine Respiratory Exam Present: decreased breath sounds, wheezes. Absent: accessory muscle use Comments: faint wheezes - Routine Cardiovascular Exam Present: S1, S2, no murmur, irregular rhythm - Routine Abdominal Exam Present: soft, normoactive bowel sounds - Routine Extremities Exam Present: no edema, non tender, full ROM - Routine Back/Spine/Pelvis Exam Back/Spine: Present: full ROM - Routine Skin Exam Present: intact, dry - Routine Neurological Exam Present: alert, oriented X3, CN II-XII intact - Routine Psychiatric Exam Present: normal affect, normal thought process Results - Laboratory Findings Laboratory: Laboratory Results - last 48 hr 12/14/17 12/14/17 12/15/17 14:44 19:49 04:18 WBC 11.3 H RBC 2.97 L Hgb 9.6 L Hct 30.7 L MCV 103.4 H MCH 32.3 MCHC 31.3 RDW Std Deviation 51.9 H Plt Count 219 MPV 9.4 Immature Gran % (Auto) Not performed Neut % (Auto) Not performed Lymph % (Auto) Not performed Wilkes % (Auto) Not performed Eos % (Auto) Not performed Baso % (Auto) Not performed Neut # (Auto) Not performed Lymph # (Auto) Not performed Wilkes # (Auto) Not performed Eos # (Auto) Not performed Baso # (Auto) Not performed Abs Immat Gran (auto) Not performed Neutrophils % (Manual) 86.0 H Band Neutrophils % 7.0 H Lymphocytes % (Manual) 1.0 L Monocytes % (Manual) 4.0 Metamyelocytes % 2.0 H Neutrophils # (Manual) 9.7 H Band Neutrophils # 0.8 Lymphocytes # (Manual) 0.1 L Monocytes # (Manual) 0.5 Metamyelocytes # 0.2 Anisocytosis 1+ Macrocytosis 1+ Curlew Cells 1+ RBC Morph Comment Abnormal Turbidity Sodium Potassium Chloride Carbon Dioxide Anion Gap BUN Creatinine GFR Calculation BUN/Creatinine Ratio Glucose Glucometer 195 194 Calculated Osmolality Calcium Icterus Index Specimen Hemolysis 12/15/17 12/15/17 12/15/17 04:18 05:52 10:20 WBC RBC Hgb Hct MCV MCH MCHC RDW Std Deviation Plt Count MPV Immature Gran % (Auto) Neut % (Auto) Lymph % (Auto) Wilkes % (Auto) Eos % (Auto) Baso % (Auto) Neut # (Auto) Lymph # (Auto) Wilkes # (Auto) Eos # (Auto) Baso # (Auto) Abs Immat Gran (auto) Neutrophils % (Manual) Band Neutrophils % Lymphocytes % (Manual) Monocytes % (Manual) Metamyelocytes % Neutrophils # (Manual) Band Neutrophils # Lymphocytes # (Manual) Monocytes # (Manual) Metamyelocytes # Anisocytosis Macrocytosis Mendel Cells RBC Morph Comment Turbidity < 20 Sodium 138 Potassium 4.4 Chloride 98 Carbon Dioxide 30 Anion Gap 10 BUN 15.0 Creatinine 0.5 L GFR Calculation 125 BUN/Creatinine Ratio 30 H Glucose 203 H Glucometer 186 153 Calculated Osmolality 273 Calcium 10.3 H Icterus Index < 2 Specimen Hemolysis < 15 12/15/17 12/15/17 12/16/17 13:46 20:26 03:58 WBC 7.6 RBC 3.00 L Hgb 9.8 L Hct 30.8 L MCV 102.7 H MCH 32.7 MCHC 31.8 RDW Std Deviation 51.5 H Plt Count 201 MPV 9.4 Immature Gran % (Auto) Neut % (Auto) Lymph % (Auto) Wilkes % (Auto) Eos % (Auto) Baso % (Auto) Neut # (Auto) Lymph # (Auto) Wilkes # (Auto) Eos # (Auto) Baso # (Auto) Abs Immat Gran (auto) Neutrophils % (Manual) 86.0 H Band Neutrophils % 2.0 Lymphocytes % (Manual) 6.0 L Monocytes % (Manual) 3.0 Metamyelocytes % 3.0 H Neutrophils # (Manual) 6.5 Band Neutrophils # 0.2 Lymphocytes # (Manual) 0.5 L Monocytes # (Manual) 0.2 Metamyelocytes # 0.2 Anisocytosis 1+ Macrocytosis 1+ Curlew Cells RBC Morph Comment Abnormal Turbidity Sodium Potassium Chloride Carbon Dioxide Anion Gap BUN Creatinine GFR Calculation BUN/Creatinine Ratio Glucose Glucometer 153 194 Calculated Osmolality Calcium Icterus Index Specimen Hemolysis 12/16/17 12/16/17 12/16/17 03:58 06:26 10:56 WBC RBC Hgb Hct MCV MCH MCHC RDW Std Deviation Plt Count MPV Immature Gran % (Auto) Neut % (Auto) Lymph % (Auto) Wilkes % (Auto) Eos % (Auto) Baso % (Auto) Neut # (Auto) Lymph # (Auto) Wilkes # (Auto) Eos # (Auto) Baso # (Auto) Abs Immat Gran (auto) Neutrophils % (Manual) Band Neutrophils % Lymphocytes % (Manual) Monocytes % (Manual) Metamyelocytes % Neutrophils # (Manual) Band Neutrophils # Lymphocytes # (Manual) Monocytes # (Manual) Metamyelocytes # Anisocytosis Macrocytosis Curlew Cells RBC Morph Comment Turbidity < 20 Sodium 139 Potassium 4.0 Chloride 95 L Carbon Dioxide 34 H Anion Gap 10 BUN 16.0 Creatinine 0.6 L GFR Calculation 101 BUN/Creatinine Ratio 27 H Glucose 156 H Glucometer 148 173 Calculated Osmolality 272 Calcium 10.1 Icterus Index < 2 Specimen Hemolysis < 15 Assessment and Plan - Assessment and Plan Acute on Chronic Hypoxic Respiratory Failure COPD exacerbation SCLCa JOBY Atrial fibrillation Plan: Pt currently on O2 at 3L per NC (uses 3-4L at home), wean to keep sats 90-95%. Unable to tolerate bipap, has home Cpap at bedside. Currently on A/A q4hr, pulmicort BID, solumedrol 125mg q6hr, wean. On metoprolol, cardizem and pradaxa for atrial fib, follow. Would likely benefit from pulmonary rehab once dismissed and a POC. - Time Spent With Patient Total time spent is greater than 50% in coordination of care (as documented) at patient's floor/unit and/or counseling patient: less than 15 minutes
--- NOTE | 2017-12-16 13:22 | Progress Note ---
- Date 12/16/17 Subjective: Yamilex is feeling a little better. She's not working as hard to breathe but is still short of breath, even at rest. Her cough is better. She's getting out of bed to walk to the bathroom -- feels that her tolerance to this activity is about as expected. She states that her appetite is "ok". She is upset b/c her facemask for CPAP doesn't fit right; it is too small and the headpiece is too tight. So, she hasn't been sleeping well b/c she's not using her CPAP. Her BP was high this morning and on recheck it was still elevated, 177/116. Objective Vital signs: Temperature 97.9 F 12/16/17 07:00 Pulse Rate 92 12/16/17 08:00 Respiratory Rate 24 12/16/17 10:40 Blood Pressure 160/120 H 12/16/17 07:28 Pulse Oximetry 96 12/16/17 10:40 Height/Weight/BMI: Height 1.63 m Weight 102.9 kg Body Mass Index 37.5 - Constitutional Present: mild distress, obese - Routine HEENT Exam Head: Present: normocephalic Eye: Present: PERRL. Absent: normal accommodation ENT: Present: mucous membranes moist, oropharynx clear - Routine Respiratory Exam Present: decreased breath sounds, prolonged expiratory phase, wheezes, diminished air movement - Routine Cardiovascular Exam Present: irregularly irregular - Routine Abdominal Exam Present: soft, normoactive bowel sounds, non tender - Routine Extremities Exam Present: no edema, pulses intact - Routine Skin Exam Present: intact, dry, warm - Routine Neurological Exam Present: alert, oriented X3, normal speech - Routine Psychiatric Exam Present: cooperative Results - Labs CBC & Chem 7: 12/16/17 03:58 12/16/17 03:58 Assessment and Plan (1) Acute respiratory failure with hypoxia Current visit: Yes Status: Acute Assessment and Plan: IMPRESSION Acute hypoxic respiratory failure-improving COPD exacerbation, requiring BIPAP intermittently A-fib with RVR, on Pradaxa-currently rate controlled Macrocytic anemia DVT 2009 CAD, hx of [place] HTN TIA 2016 Small cell carcinoma of lung, neuroendocrine tumor; completed 4 rounds of chemotherapy with Cisplat and VP16, 06/12 brain radiation treatments completed moderate COPD requiring chronic O2 (GOLD 3) JOBY, on CPAP at home, can restart CPAP here as tolerated Hyperlipidemia GERD Allergic rhinitis Osteoporosis Cataracts Mild hypercalcemia Hyperglycemia secondary to steroids Macrocytic anemia with borderline low B 12 Mild hypercalcemia PLAN Slime Callahan APRN weaned Solu-Medrol to 80 mg TID today. Continue resp treatments and O2. Increase activity as able. Discussed pt's CPAP questions with RT - they report that her machine and mask/ straps were cleaned (they were not very clean when she came in), and they have tried combinations of the hospital's CPAP machine, the hospital's mask, and her own equipment, without success. RT will continue to try to find the right combination and fit for her JOBY. HTN - bp is higher today. Consider adding Norvasc. Hopefully as we wean steroids her bp will improve. PT evaluated her yesterday: recommended inpt PT, OT and SNF at discharge Discussed with Dr. Grant. 12/16/2017-2:40 PM-I reviewed this chart, the patient history, and the [employer]AY MAN's/PA 's documented findings as above. We discussed and formulated the assessment and plan as above with the additions below.-Dr. Grant Patient was seen this afternoon in her room. She states she is feeling better. She is breathing more easily. She is eating and drinking well. She denies any pain at this time. Blood pressures have been elevated today. I did check her blood pressure with a manual cuff which is just slightly too small for her. On my check blood pressure was 160/95. On exam she is alert and oriented and in no acute distress. Chest reveals no wheezes today. Cardiovascular reveals an irregularly irregular rhythm with a controlled rate. Abdomen is soft and nontender. Extremities are free of edema. Impression and plan COPD exacerbation appears to be improving. Lungs sound clear to me today. Discussed with Rose Callahan, and steroids have been decreased. This may help with her blood pressure as well. Continue with current supportive care. Possibly discharge in 2-3 days if she is tolerating decrease in steroids. Hopefully the patient will be strong enough and breathing well enough to dismiss to home, but may need to consider shelter. Discussed with case management. DVT Prophylaxis: Pradaxa Resuscitation Status: Full Code - Physician Narrative Narrative: Date: 12/16/17 Time: 1312 Hospital Course Summary Disclaimer: The visit summary below is not to be considered part of the above Progress Note. Hospital Course: 12/12/17 Admit, inpt status to CCU. Given tachypnea and dyspnea, there is concern for impending failure. Will check ABG and ask RT to place her on BiPAP. Continue with steroids; Solu-Medrol 125 mg QID; DuoNeb; acapella. Morphine/ ativan PRN air hunger. Consider pulm consultation. Trend troponin; monitor tele. Resume Pradaxa and metoprolol. May need to slow rate with diltiazem vs. IV BB. Reports poor oral intake and oliguria. This combined with RVR raises concerns about dehydration - will give 1L NS @ 100 mL/hr. Macrocytic anemia - check iron studies, b12, and folate. Consult CM to sign/notarize DPOA naming as her surrogate decision maker. 12/13/17 Doing well clinically, heart rate improved overnight using BiPAP which also resulted in improvement in labored respirations. No indication of pneumonia or overt heart failure; probable viral COPD exacerbation triggered by viral URI (respiratory viral panel negative but viral prodrome present) Stable to transfer out of ICU, continue IV steroids, BIPAP when necessary while awake and at bedtime, and aggressive beta agonist therapy. Chest x-ray in a.m. Continue telemetry, no need for acute cardiac interventions or alteration in chronic medications for atrial fibrillation. Hemoglobin stable, iron studies/B-12/folic acid pending. 12/14 Recheck a Chest X-ray now. Spoke with Rt at the bedside. Will give Advair and Spiriva now. Will then follow with albuterol neb if needed. Encourage use of Flonase nasal congestion Encourage nursing staff to utilize [place] and morphine for pain control and treat headache. She may have Ativan as needed for anxiety. At this point will continue with Solu-Medrol every 6 hours. Will continue IV fluids given increased wheezing. Detailed overall, patient is fatigued due to her lack of sleep. Will treat current headache, Encourage rest today and reevaluate later Will discuss further orders and plan of care with attending, Dr. Grant 12/15 Regarding COPD exacerbation, the patient is feeling a little bit better today. Appreciate Dr. Law's consult. We'll continue steroids, breathing treatments and supplemental oxygen. The patient is interested in outpatient pulmonary rehabilitation, but wants to discuss it first with her scanning supervisor PT OT eval and treat Supplemental insulin as needed for hyperglycemia Continue Pradaxa for A. fib and history of DVT Continue metoprolol and when necessary oral diltiazem for rate control with A. fib Restart CPAP tonight if tolerated, can revert back to BiPAP if needed Recheck CBC and basic metabolic profile tomorrow. I did call and talk with Dr. Riley, the patient's oncologist, regarding the fact that she missed her 10th and last brain radiation treatment and that she has been having frontal headache since initiating brain radiation tx's. He stated that was not unusual and no further workup needed at this time. 12/16 Slime Callahan APRN weaned Solu-Medrol to 80 mg TID today. Continue resp treatments and O2. Increase activity as able. Discussed pt's CPAP questions with RT - they report that her machine and mask/ straps were cleaned (they were not very clean when she came in), and they have tried combinations of the hospital's CPAP machine, the hospital's mask, and her own equipment, without success. RT will continue to try to find the right combination and fit for her JOBY. HTN - bp is higher today. Consider adding Norvasc. Hopefully as we wean steroids her bp will improve. PT evaluated her yesterday: recommended inpt PT, OT and SNF at discharge Discussed with Dr. Grant.
[2017-12-16] MEDS: FLUTICASONE NASAL SPRAY 50mcg EA NOSTRIL SCH (20:41)
[2017-12-16] MEDS: ASPIRIN *EC* 81 MG TABLET PO SCH (20:42)
[2017-12-16] MEDS: SIMVASTATIN 20 MG TABLET PO SCH (20:42)
[2017-12-16] MEDS: LEVOTHYROXINE 150 MCG TABLET PO SCH (20:43)
[2017-12-17] MEDS: SALINE FLUSH 10ml SYRINGE IVF PRN (00:13)
[2017-12-17] MEDS: METHYLPREDNISOLONE SOD SUCC 125mg/2ml INJECTION IVP SCH ×3 (00:13→17:28)
[2017-12-17] MEDS: ALBUTEROL/IPRATROPIUM 2.5mg-0.5mg/3ml NEB AEROSOL SCH ×5 (03:40→20:29)
[2017-12-17] MEDS: MONTELUKAST 10 MG TABLET PO SCH (09:04)
[2017-12-17] MEDS: CYANOCOBALAMIN (B-12) 500mcg TABLET PO SCH (09:05)
[2017-12-17] MEDS: BUDESONIDE INH.SOLN 0.5mg/2ml NEB AEROSOL SCH ×2 (09:31→20:28)
[2017-12-17] MEDS: GUAIFENESIN LA 600 MG TABLET PO SCH ×2 (10:34→20:26)
[2017-12-17] MEDS: HYDROCODONE/APAP 5mg/325mg TABLET PO PRN (12:40)
--- NOTE | 2017-12-17 13:31 | Progress Note ---
- Date 12/17/17 Subjective: Yamilex finally had a good night. Her CPAP mask/strap felt fine and she was able to sleep well. She states that her breathing is much better today, as well. She' s still coughing, but it's improving. She's bringing up clear sputum. She states that she's been able to walk to and from the bathroom without much difficulty. She didn't talk much more b/c she was in the middle of a breathing treatment. Later I spoke with her and he states that going to and from the bathroom leaves her "huffing and puffing" and he is very worried about her ability to safely ambulate at home, both considering weakness and pulmonary debility. He also would like a portable oxygen concentrator. Before she became sick, she's never needed oxygen during the day, only at night, so she doesn't have one. Objective Vital signs: Temperature 98.6 F 12/17/17 07:26 Pulse Rate 97 12/17/17 08:00 Respiratory Rate 24 12/17/17 09:31 Blood Pressure 134/85 12/17/17 07:26 Pulse Oximetry 95 12/17/17 09:31 Height/Weight/BMI: Height 1.63 m Weight 104.4 kg Body Mass Index 37.5 - Constitutional Present: no acute distress, well nourished, well developed, obese - Routine HEENT Exam Head: Present: normocephalic Eye: Present: PERRL. Absent: conjunctival icterus, scleral injection - Routine Respiratory Exam Present: decreased breath sounds, wheezes - Routine Cardiovascular Exam Present: S1, S2, irregularly irregular - Routine Abdominal Exam Present: soft, normoactive bowel sounds, non tender - Routine Extremities Exam Present: no edema, pulses intact - Routine Musculoskeletal Exam Musculoskeletal: Present: no erythema - Routine Skin Exam Present: intact, dry, warm - Routine Neurological Exam Present: alert, oriented X3 - Routine Psychiatric Exam Present: normal affect, normal thought process, cooperative Results - Labs CBC & Chem 7: 12/17/17 04:45 12/17/17 04:45 Assessment and Plan (1) Acute respiratory failure with hypoxia Current visit: Yes Status: Acute Assessment and Plan: IMPRESSION Acute hypoxic respiratory failure-improving COPD exacerbation, requiring BIPAP intermittently A-fib with RVR, on Pradaxa-currently rate controlled Macrocytic anemia DVT 2009 CAD, hx of [place] HTN TIA 2016 Small cell carcinoma of lung, neuroendocrine tumor; completed 4 rounds of chemotherapy with Cisplat and VP16, 06/12 brain radiation treatments completed moderate COPD requiring chronic O2 (GOLD 3) JOBY, on CPAP at home, can restart CPAP here as tolerated Hyperlipidemia GERD Allergic rhinitis Osteoporosis Cataracts Mild hypercalcemia Hyperglycemia secondary to steroids Macrocytic anemia with borderline low B 12 Mild hypercalcemia PLAN BP under much better control today. Tolerating CPAP. Could possibly wean steroids to BID. Dr. Law is reportedly working on getting her a portable concentrator. Continue breathing treatments. Encouraged her to increase activity level. However, in discussion with her he does not feel she is safe yet for return home -- from both mobility and pulmonary perspectives. May need to consider jail, or at the very least, home health. K decreased to 3.5 and KDur has been ordered. Discussed with RT, Dr. Grant, and Zeus (pt's spouse). 12/17/2017-3:10 PM-I reviewed this chart, the patient history, and the CONSUMER STUDIES PROFESSOR's/PA 's documented findings as above. We discussed and formulated the assessment and plan as above with the additions below.-Dr. Grant The patient was seen this afternoon in her room. She states she's feeling stronger. She tolerated CPAP without difficulties last night. She's coughing up some clear phlegm. She denies any pain. Her headache is gone. She is eating well. She does not want to go to jail. On exam she is alert and in no acute distress. Chest reveals some mild end expiratory wheezing. Cardiovascular reveals an irregularly irregular rhythm with controlled rate. Abdomen is soft and nontender. Extremities are free of edema. Lab is reviewed. Impression and plan Overall, the patient is making slow improvement in her COPD exacerbation. She is currently on 80 mg of Solu-Medrol IV every 8. Continue with breathing treatments. Possible transition to oral steroids and discharged on Tuesday if strength and breathing continues to improve. Repeat basic metabolic profile tomorrow. Patient was encouraged to increase activity. Up in chair for meals. DVT Prophylaxis: SCD's, Pradaxa Resuscitation Status: Full Code - Physician Narrative Narrative: Date: 12/17/17 Time: 1328 Hospital Course Summary Disclaimer: The visit summary below is not to be considered part of the above Progress Note. Hospital Course: 12/12/17 Admit, inpt status to CCU. Given tachypnea and dyspnea, there is concern for impending failure. Will check ABG and ask RT to place her on BiPAP. Continue with steroids; Solu-Medrol 125 mg QID; DuoNeb; acapella. Morphine/ ativan PRN air hunger. Consider pulm consultation. Trend troponin; monitor tele. Resume Pradaxa and metoprolol. May need to slow rate with diltiazem vs. IV BB. Reports poor oral intake and oliguria. This combined with RVR raises concerns about dehydration - will give 1L NS @ 100 mL/hr. Macrocytic anemia - check iron studies, b12, and folate. Consult CM to sign/notarize DPOA naming as her surrogate decision maker. 12/13/17 Doing well clinically, heart rate improved overnight using BiPAP which also resulted in improvement in labored respirations. No indication of pneumonia or overt heart failure; probable viral COPD exacerbation triggered by viral URI (respiratory viral panel negative but viral prodrome present) Stable to transfer out of ICU, continue IV steroids, BIPAP when necessary while awake and at bedtime, and aggressive beta agonist therapy. Chest x-ray in a.m. Continue telemetry, no need for acute cardiac interventions or alteration in chronic medications for atrial fibrillation. Hemoglobin stable, iron studies/B-12/folic acid pending. 12/14 Recheck a Chest X-ray now. Spoke with Rt at the bedside. Will give Advair and Spiriva now. Will then follow with albuterol neb if needed. Encourage use of Flonase nasal congestion Encourage nursing staff to utilize [place] and morphine for pain control and treat headache. She may have Ativan as needed for anxiety. At this point will continue with Solu-Medrol every 6 hours. Will continue IV fluids given increased wheezing. Detailed overall, patient is fatigued due to her lack of sleep. Will treat current headache, Encourage rest today and reevaluate later Will discuss further orders and plan of care with attending, Dr. Grant 12/15 Regarding COPD exacerbation, the patient is feeling a little bit better today. Appreciate Dr. Law's consult. We'll continue steroids, breathing treatments and supplemental oxygen. The patient is interested in outpatient pulmonary rehabilitation, but wants to discuss it first with her patient access specialist PT OT eval and treat Supplemental insulin as needed for hyperglycemia Continue Pradaxa for A. fib and history of DVT Continue metoprolol and when necessary oral diltiazem for rate control with A. fib Restart CPAP tonight if tolerated, can revert back to BiPAP if needed Recheck CBC and basic metabolic profile tomorrow. I did call and talk with Dr. Riley, the patient's oncologist, regarding the fact that she missed her 10th and last brain radiation treatment and that she has been having frontal headache since initiating brain radiation tx's. He stated that was not unusual and no further workup needed at this time. 12/16 Slime Callahan APRN weaned Solu-Medrol to 80 mg TID today. Continue resp treatments and O2. Increase activity as able. Discussed pt's CPAP questions with RT - they report that her machine and mask/ straps were cleaned (they were not very clean when she came in), and they have tried combinations of the hospital's CPAP machine, the hospital's mask, and her own equipment, without success. RT will continue to try to find the right combination and fit for her JOBY. HTN - bp is higher today. Consider adding Norvasc. Hopefully as we wean steroids her bp will improve. PT evaluated her yesterday: recommended inpt PT, OT and SNF at discharge 12/17 BP under much better control today. Tolerating CPAP. Could possibly wean steroids to BID. Dr. Law is reportedly working on getting her a portable concentrator. Continue breathing treatments. Encouraged her to increase activity level. However, in discussion with her he does not feel she is safe yet for return home -- from both mobility and pulmonary perspectives. May need to consider jail, or at the very least, home health. K decreased to 3.5 and KDur has been ordered.
[2017-12-17] MEDS: DiltiaZEM IR 30 MG TABLET PO PRN (15:58)
[2017-12-17] MEDS: LEVOTHYROXINE 150 MCG TABLET PO SCH (20:26)
[2017-12-17] MEDS: ASPIRIN *EC* 81 MG TABLET PO SCH (20:27)
[2017-12-17] MEDS: SIMVASTATIN 20 MG TABLET PO SCH (20:27)
[2017-12-17] MEDS: FLUTICASONE NASAL SPRAY 50mcg EA NOSTRIL SCH (20:27)
[2017-12-18] MEDS: SALINE FLUSH 10ml SYRINGE IVF PRN (00:42)
[2017-12-18] MEDS: METHYLPREDNISOLONE SOD SUCC 125mg/2ml INJECTION IVP SCH ×2 (00:42→09:01)
[2017-12-18] MEDS: ALBUTEROL/IPRATROPIUM 2.5mg-0.5mg/3ml NEB AEROSOL SCH ×6 (00:44→21:03)
[2017-12-18] MEDS: LORazepam 1 MG TABLET PO PRN (04:00)
[2017-12-18] MEDS: BUDESONIDE INH.SOLN 0.5mg/2ml NEB AEROSOL SCH ×2 (07:50→21:03)
[2017-12-18] MEDS: MONTELUKAST 10 MG TABLET PO SCH (09:00)
[2017-12-18] MEDS: CYANOCOBALAMIN (B-12) 500mcg TABLET PO SCH (09:01)
[2017-12-18] MEDS: GUAIFENESIN LA 600 MG TABLET PO SCH ×2 (09:01→20:25)
[2017-12-18] MEDS: HYDROCODONE/APAP 5mg/325mg TABLET PO PRN (12:31)
--- NOTE | 2017-12-18 12:37 | Progress Note ---
- Date 12/18/17 Subjective: I saw the patient today in her room. Her was here earlier but has since left. The patient is upset today. She is tired of being woken up at night. She is tired of being poked for her blood sugars and lab draws. She states she just wants to go home. She has pains in her arms and legs which is similar to when she is receive Neulasta in the past but she has not received any Neulasta recently. She states she is tired of the food here but her appetite is okay. She denies any difficulties with urination. She denies constipation or diarrhea. She feels like her breathing is better. She feels that she is strong enough to go home. She strongly wants to go home tomorrow. She did walk in the hallways today with RT. On room air her O2 sat was 82%. She required 4 L of oxygen with ambulation to keep her saturations 91-93%. Objective Vital signs: Temperature 97.5 F 12/18/17 08:00 Pulse Rate 125 H 12/18/17 10:30 Respiratory Rate 24 12/18/17 10:43 Blood Pressure 176/98 H 12/18/17 08:00 Pulse Oximetry 94 12/18/17 10:43 Height/Weight/BMI: Height 1.63 m Weight 101.6 kg Body Mass Index 37.5 Comments: GEN-alert, unhappy today, otherwise no distress CV-irregularly irregular rhythm with controlled rate CHEST-mild end expiratory wheezes ABD-soft, nontender with positive bowel sounds -no [place] EXT-trace pedal edema NEURO-no focal deficits SKIN-warm and dry Results - Labs CBC & Chem 7: 12/17/17 04:45 12/18/17 04:19 Assessment and Plan (1) Acute respiratory failure with hypoxia Current visit: Yes Status: Acute Assessment and Plan: IMPRESSION Acute hypoxic respiratory failure-improving COPD exacerbation, requiring BIPAP intermittently A-fib with RVR, on Pradaxa-currently rate controlled Macrocytic anemia DVT 2010 CAD, hx of [place] HTN TIA 2016 Small cell carcinoma of lung, neuroendocrine tumor; completed 4 rounds of chemotherapy with Cisplat and VP16, 06/12 brain radiation treatments completed moderate COPD requiring chronic O2 (GOLD 3) JOBY, on CPAP at home, can restart CPAP here as tolerated Hyperlipidemia GERD Allergic rhinitis Osteoporosis Cataracts Mild hypercalcemia Hyperglycemia secondary to steroids Macrocytic anemia with borderline low B 12 Mild hypercalcemia Hypokalemia PLAN Medically, the patient appears to be doing better. She is somewhat agitated today and unhappy about several things as described above in subjective. We'll change her breathing treatments to 4 times a day. Will change her morning lab to 7:30 AM. We'll try to minimize waking her up unnecessarily. Continue CPAP at night. Increase activity as tolerated. We'll change prednisone to 30 mg daily. DC Accu-Cheks. She is not diabetic but has been moderately hyperglycemic with steroids. Highest blood sugar in the past day has been 199. This should improve with decreasing prednisone. Will stop insulin as well. Possibly home tomorrow. She does not want home health. She does not want residential. She states her is able to care for her at home. She would like a prescription for a portable concentrator tomorrow. We'll replace potassium orally and recheck level tomorrow. Patient will take [place] for diffuse limb pain. We'll check a CPK of blood in lab. - Physician Narrative Narrative: Date: 12/18/17 Time: 1234 Hospital Course Summary Disclaimer: The visit summary below is not to be considered part of the above Progress Note. Hospital Course: 12/12/17 Admit, inpt status to CCU. Given tachypnea and dyspnea, there is concern for impending failure. Will check ABG and ask RT to place her on BiPAP. Continue with steroids; Solu-Medrol 125 mg QID; DuoNeb; acapella. Morphine/ ativan PRN air hunger. Consider pulm consultation. Trend troponin; monitor tele. Resume Pradaxa and metoprolol. May need to slow rate with diltiazem vs. IV BB. Reports poor oral intake and oliguria. This combined with RVR raises concerns about dehydration - will give 1L NS @ 100 mL/hr. Macrocytic anemia - check iron studies, b12, and folate. Consult CM to sign/notarize DPOA naming as her surrogate decision maker. 12/13/17 Doing well clinically, heart rate improved overnight using BiPAP which also resulted in improvement in labored respirations. No indication of pneumonia or overt heart failure; probable viral COPD exacerbation triggered by viral URI (respiratory viral panel negative but viral prodrome present) Stable to transfer out of ICU, continue IV steroids, BIPAP when necessary while awake and at bedtime, and aggressive beta agonist therapy. Chest x-ray in a.m. Continue telemetry, no need for acute cardiac interventions or alteration in chronic medications for atrial fibrillation. Hemoglobin stable, iron studies/B-12/folic acid pending. 12/14 Recheck a Chest X-ray now. Spoke with Rt at the bedside. Will give Advair and Spiriva now. Will then follow with albuterol neb if needed. Encourage use of Flonase nasal congestion Encourage nursing staff to utilize [place] and morphine for pain control and treat headache. She may have Ativan as needed for anxiety. At this point will continue with Solu-Medrol every 6 hours. Will continue IV fluids given increased wheezing. Detailed overall, patient is fatigued due to her lack of sleep. Will treat current headache, Encourage rest today and reevaluate later Will discuss further orders and plan of care with attending, Dr. Grant 12/15 Regarding COPD exacerbation, the patient is feeling a little bit better today. Appreciate Dr. Law's consult. We'll continue steroids, breathing treatments and supplemental oxygen. The patient is interested in outpatient pulmonary rehabilitation, but wants to discuss it first with her assembler production line PT OT eval and treat Supplemental insulin as needed for hyperglycemia Continue Pradaxa for A. fib and history of DVT Continue metoprolol and when necessary oral diltiazem for rate control with A. fib Restart CPAP tonight if tolerated, can revert back to BiPAP if needed Recheck CBC and basic metabolic profile tomorrow. I did call and talk with Dr. Riley, the patient's oncologist, regarding the fact that she missed her 10th and last brain radiation treatment and that she has been having frontal headache since initiating brain radiation tx's. He stated that was not unusual and no further workup needed at this time. 12/16 Slime Callahan APRN weaned Solu-Medrol to 80 mg TID today. Continue resp treatments and O2. Increase activity as able. Discussed pt's CPAP questions with RT - they report that her machine and mask/ straps were cleaned (they were not very clean when she came in), and they have tried combinations of the hospital's CPAP machine, the hospital's mask, and her own equipment, without success. RT will continue to try to find the right combination and fit for her JOBY. HTN - bp is higher today. Consider adding Norvasc. Hopefully as we wean steroids her bp will improve. PT evaluated her yesterday: recommended inpt PT, OT and SNF at discharge 12/17 BP under much better control today. Tolerating CPAP. Could possibly wean steroids to BID. Dr. Law is reportedly working on getting her a portable concentrator. Continue breathing treatments. Encouraged her to increase activity level. However, in discussion with her he does not feel she is safe yet for return home -- from both mobility and pulmonary perspectives. May need to consider residential, or at the very least, home health. K decreased to 3.5 and KDur has been ordered.
[2017-12-18] MEDS: PredniSONE 10 MG TABLET PO SCH (18:55)
[2017-12-18] MEDS: SIMVASTATIN 20 MG TABLET PO SCH (20:24)
[2017-12-18] MEDS: LEVOTHYROXINE 150 MCG TABLET PO SCH (20:24)
[2017-12-18] MEDS: ASPIRIN *EC* 81 MG TABLET PO SCH (20:25)
[2017-12-18] MEDS: FLUTICASONE NASAL SPRAY 50mcg EA NOSTRIL SCH (20:26)
[2017-12-18] MEDS ORDERED: MAG-AL + SIM ORAL LIQUID 30ml PO PRN (20:52)
[2017-12-19] MEDS: MONTELUKAST 10 MG TABLET PO SCH (09:08)
[2017-12-19] MEDS: GUAIFENESIN LA 600 MG TABLET PO SCH (09:08)
[2017-12-19] MEDS: CYANOCOBALAMIN (B-12) 500mcg TABLET PO SCH (09:08)
[2017-12-19] MEDS: PredniSONE 10 MG TABLET PO SCH (09:09)
[2017-12-19] MEDS: ALBUTEROL/IPRATROPIUM 2.5mg-0.5mg/3ml NEB AEROSOL SCH ×2 (09:32→13:34)
[2017-12-19] MEDS: BUDESONIDE INH.SOLN 0.5mg/2ml NEB AEROSOL SCH (09:32)
--- NOTE | 2017-12-19 10:21 | Pulmonology Progress Note ---
Subjective Principal diagnosis: SOB Interval history: Pt. sitting up in chair, states she is feeling a little more SOB today, which she attributes to the weather changes. Pt. currently at [facility]. at bedside, all questions and concerns addressed. Exam Vital signs: Temperature 98.4 F 12/19/17 07:00 Pulse Rate 88 12/19/17 07:00 Respiratory Rate 18 12/19/17 09:36 Blood Pressure 166/109 H 12/19/17 07:00 Pulse Oximetry 91 12/19/17 09:36 Inpatient Medications: Generic Name Dose Route Start Last Admin Trade Name Freq PRN Reason Stop Dose Admin Acetaminophen 650 mg 12/12/17 19:21 12/14/17 22:21 Tylenol PO 650 mg Q5H PRN Administration Discomfort Hydrocodone Bitart/Acetaminophen 1 tab 12/12/17 21:22 12/18/17 12:31 [place] 5/325 PO 1 tab Q4H PRN Administration Pain Al Hydroxide/Mg Hydroxide 30 ml 12/18/17 20:52 12/18/17 21:53 Maalox Plus PO 30 ml Q4H PRN Administration Indigestion Albuterol/Ipratropium 3 ml 12/12/17 18:56 12/12/17 19:05 Duoneb AEROSOL 3 ml O PRN Administration Albuterol/Ipratropium 3 ml 12/18/17 15:00 12/19/17 09:32 Duoneb AEROSOL 3 ml RTQID JOYCE Administration Aspirin 81 mg 12/12/17 21:00 12/18/17 20:25 Ecotrin PO 81 mg HS JOYCE Administration Budesonide 0.5 mg 12/14/17 19:00 12/19/17 09:32 Pulmicort Inhalation AEROSOL 0.5 mg RTBID JOYCE Administration Cyanocobalamin 1,000 mcg 12/15/17 09:00 12/19/17 09:08 Vit. B-12 PO 1,000 mcg DAILY JOYCE Administration Dabigatran 150 mg 12/12/17 21:00 12/19/17 09:08 Pradaxa PO 150 mg BID JOYCE Administration Diltiazem HCl 30 mg 12/12/17 20:57 12/17/17 15:58 Cardizem Ir 30 Mg Tab PO 30 mg Q6H PRN Administration For Heart Rate > than 100 Fluticasone Propionate 1 spray 12/12/17 21:00 12/18/17 20:26 Flonase EA NOSTRIL 1 spray HS JOYCE Administration Guaifenesin 1,200 mg 12/14/17 21:00 12/19/17 09:08 Mucinex La PO 1,200 mg BID JOYCE Administration Levothyroxine Sodium 150 mcg 12/12/17 21:00 12/18/17 20:24 Synthroid PO 150 mcg HS JOYCE Administration Lorazepam 1 mg 12/12/17 19:21 12/18/17 04:00 Ativan PO 1 mg Q8H PRN Administration PRN orders Lorazepam 0.5 mg 12/12/17 19:21 12/15/17 00:08 Ativan Inj IVP 0.5 mg Q6H PRN Administration Air hunger Metoprolol Succinate 50 mg 12/12/17 21:00 12/18/17 20:24 Toprol Xl PO 50 mg HS JOYCE Administration Montelukast Sodium 10 mg 12/13/17 09:00 12/19/17 09:08 Singulair PO 10 mg DAILY JOYCE Administration Morphine Sulfate 2 mg 12/12/17 19:21 12/16/17 00:44 Morphine Sulfate Inj IVP 2 mg Q2H PRN Administration Air hunger Ondansetron HCl 4 mg 12/12/17 19:21 Zofran IVP Q4H PRN Nausea &/or vomiting Prednisone 30 mg 12/18/17 12:33 12/19/17 09:09 Deltasone 10 Mg PO 30 mg WB JOYCE Administration Simvastatin 20 mg 12/12/17 21:00 12/18/17 20:24 Zocor PO 20 mg HS JOYCE Administration Sodium Chloride 10 - 80 ml 12/12/17 15:46 12/18/17 00:42 Iv Flush IVF 10 ml PRN PRN Administration Flushing Sodium Chloride 1 spray 12/13/17 14:10 12/15/17 16:54 Deep Sea Nasal Moisturizing [place] EA NOSTRIL 1 spray PRN PRN Administration Congestion Discontinued Medications Generic Name Dose Route Start Last Admin Trade Name Freq PRN Reason Stop Dose Admin Albuterol/Ipratropium 3 ml 12/12/17 15:29 12/12/17 15:47 Duoneb AEROSOL 12/12/17 15:30 3 ml O ONE Administration Albuterol/Ipratropium 3 ml 12/12/17 17:22 03/12/18 17:27 Duoneb AEROSOL 12/12/17 17:23 3 ml O ONE Administration Albuterol/Ipratropium 3 ml 12/12/17 19:21 12/18/17 10:43 Duoneb AEROSOL 3 ml Q4H JOYCE Administration Sodium Chloride 1,000 mls @ 999.9 mls/hr 12/12/17 15:28 12/12/17 17:40 Normal Saline IV 12/12/17 16:27 Infused .Q1H ONE Infusion Sodium Chloride 1,000 mls @ 100 mls/hr 12/12/17 19:21 12/14/17 11:12 Normal Saline IV Infused .Q10H JOYCE Infusion Insulin Aspart 1 - 5 unit 12/13/17 12:10 12/16/17 20:42 Novolog SQ 3 unit SS PRN Administration Hyperglycemia Protocol Labetalol HCl 10 mg 12/12/17 15:30 12/12/17 16:41 Trandate IVP 12/12/17 15:31 10 mg O ONE Administration Lorazepam 0.5 mg 12/12/17 17:58 12/12/17 18:09 Ativan Inj IVP 12/12/17 17:59 0.5 mg O ONE Administration Methylprednisolone Sodium Succinate 125 mg 12/12/17 15:43 12/12/17 16:41 Solu-Medrol IVP 12/12/17 15:44 125 mg O ONE Administration Methylprednisolone Sodium Succinate 125 mg 12/12/17 21:00 12/16/17 08:54 Solu-Medrol IVP 125 mg Q6HR JOYCE Administration Methylprednisolone Sodium Succinate 80 mg 12/16/17 17:00 12/18/17 09:01 Solu-Medrol IVP 80 mg Q8HR JOYCE Administration Potassium Chloride 20 meq 12/17/17 08:00 12/17/17 17:29 K-Dur 20 Meq Tablet PO 12/17/17 17:31 20 meq BIDWM JOYCE Administration Potassium Chloride 20 meq 12/18/17 08:00 12/18/17 18:54 K-Dur 20 Meq Tablet PO 12/18/17 17:31 20 meq BIDWM JOYCE Administration Fluticasone/Salmeterol 1 each 12/12/17 21:00 12/14/17 11:00 Advair Diskus ORAL INH 1 each BID JOYCE Administration Tiotropium [place] 1 cap 12/13/17 09:00 12/14/17 09:43 Spiriva ORAL INH 1 cap DAILY JOYCE Administration - Constitutional no acute distress, well nourished, morbidly obese - Routine HEENT Exam Head: Present: normocephalic, atraumatic Eye: Present: PERRL ENT: Present: mucous membranes moist, nares patent - Routine Neck Exam Present: supple, full ROM. Absent: JVD, carotid bruit - Routine Respiratory Exam Present: decreased breath sounds, wheezes Comments: Dyspnea with exertion - Routine Cardiovascular Exam Present: RRR, S1, S2, no murmur - Routine Abdominal Exam Present: soft, normoactive bowel sounds, non distended, non tender - Routine Extremities Exam Present: edema, non tender, pulses intact, normal capillary refill Comments: Trace edema to BLE - Routine Back/Spine/Pelvis Exam Back/Spine: Present: full ROM - Routine Skin Exam Present: intact, dry, warm - Routine Neurological Exam Present: alert, oriented X3, CN II-XII intact, moving all extremities - Routine Psychiatric Exam Present: normal affect, normal thought process, cooperative, good insight, good judgment Results - Laboratory Findings Laboratory: Laboratory Results - last 48 hr 12/17/17 12/17/17 12/17/17 10:35 15:41 20:19 Turbidity Sodium Potassium Chloride Carbon Dioxide Anion Gap BUN Creatinine GFR Calculation BUN/Creatinine Ratio Glucose Glucometer 199 176 184 Calculated Osmolality Calcium Icterus Index Total Creatine Kinase Specimen Hemolysis 12/18/17 12/18/17 12/18/17 04:19 04:19 06:14 Turbidity < 20 Sodium 138 Potassium 3.3 L Chloride 90 L Carbon Dioxide 35 H Anion Gap 13 BUN 19.0 H Creatinine 0.6 L GFR Calculation 101 BUN/Creatinine Ratio 32 H Glucose 161 H Glucometer 161 Calculated Osmolality 271 Calcium 9.8 Icterus Index < 2 Total Creatine Kinase 31 Specimen Hemolysis < 15 12/19/17 07:36 Turbidity < 20 Sodium 139 Potassium 3.7 Chloride 91 L Carbon Dioxide 38 H Anion Gap 10 BUN 22.0 H Creatinine 0.7 GFR Calculation 85 BUN/Creatinine Ratio 31 H Glucose 129 H Glucometer Calculated Osmolality 273 Calcium 10.1 Icterus Index < 2 Total Creatine Kinase Specimen Hemolysis < 15 Assessment and Plan - Assessment and Plan Acute on Chronic Hypoxic Respiratory Failure COPD exacerbation SCLCa JOBY Atrial fibrillation Plan: Pt currently on O2 at 3L per NC (uses 3-4L at home), wean to keep sats 90-95%. Unable to tolerate bipap, has home Cpap at bedside. Currently on A/A q4hr, pulmicort BID, solumedrol dc'd, currently on prednisone 30mg D. On metoprolol, cardizem and pradaxa for atrial fib, follow. RT to check O2 on pt. while walking with Oxymizer. Plan for pt. to be dismissed today with POC. Will send orders for POC and nebulizer. Okay to continue to home medications with advair and spiriva. Follow-up with her director acute in 2 weeks. - Time Spent With Patient Total time spent is greater than 50% in coordination of care (as documented) at patient's floor/unit and/or counseling patient: less than 15 minutes
--- NOTE | 2017-12-19 10:50 | Discharge Summary ---
Discharge Information Date of admission: 12/12/17 18:23 Anticipated date of discharge: 12/19/17 Attending Physician: Sol Antunez MD Primary care physician: Lavon Arnold MD Consults: Consulting Provider: Zeus Law Reason For Exam: dyspnea - Discharge Diagnosis (1) Acute respiratory failure with hypoxia Status: Acute DISCHARGE DIAGNOSES Acute hypoxic respiratory failure - improving COPD exacerbation - improving Hyperglycemia secondary to steroids - improving Macrocytic anemia with borderline low B12 and iron deficiency anemia Mild hypercalcemia - resolved Hyperkalemia, Hypokalemia - resolved ASSOCIATED AND CHRONIC CONDITIONS A-fib with RVR, on Pradaxa-currently rate controlled Macrocytic anemia DVT 2009 CAD, hx of [place] HTN TIA 2016 Small cell carcinoma of lung, neuroendocrine tumor; completed 4 rounds of chemotherapy with Cisplat and VP16, 06/12 brain radiation treatments completed moderate COPD requiring chronic O2 (GOLD 3) JOBY, on CPAP at home Hyperlipidemia GERD Allergic rhinitis Osteoporosis Cataracts - Laboratory Labs: 12/17/17 04:45 12/19/17 07:36 - Radiology Radiology: Date of Exam: 12/12/17 PROCEDURE: XR chest 1V: Findings: Chronic elevation of the left hemidiaphragm with left basilar scarring. There is mild interstitial prominence without a focal lobar consolidation. No pleural effusion or pneumothorax. Heart size and mediastinal contours are stable with a moderate to severely enlarged cardiac silhouette. Impression: Mild interstitial prominence could relate to mild vascular congestion or atypical/viral pneumonia. Date of Exam: 12/14/17 PROCEDURE: CHEST 2-VIEWS UPRIGHT (PA & LAT) FINDINGS: Lungs are stable in appearance. No new or worsening airspace disease. No pneumothorax or pleural effusion. Cardiac silhouette remains enlarged. Multiple surgical clips again noted along with an elevated left hemidiaphragm. Mediastinal contours are stable. Impression: Stable appearance of the chest without focal pneumonia or overt congestive failure. Date of Exam: 12/14/17 PROCEDURE: CHEST 2-VIEWS UPRIGHT (PA & LAT) FINDINGS: Scarring in the left upper lobe again seen. Mild interstitial prominence and mild emphysema. No new or worsening consolidation. No pleural effusion or pneumothorax. Elevated left hemidiaphragm. Cardiac silhouette remains enlarged. Mediastinal contours are stable. Pulmonary vascularity is stable. Impression: Stable appearance of the chest. History of Present Illness HPI: Yamilex Sinha is a 62 y/o woman who finished chemo and has 9/10 radiation treatments completed for small cell carcinoma of the lung. She has had some residual weakness, achiness, myalgias, headaches, dizziness, and loss of appetite from her chemo/radiation regimen, under the direction of Dr. Jaya López. However, she became much worse on 12/06/17, on which day both her and her , Zeus, awoke with a "24-hour bug" and had nausea, poor appetite, and achiness. His symptoms resolved in about a day, and her symptoms almost went away, but then she became much more short of breath. She's been needing oxygen around the clock since diagnosed with cancer last fall, and her wonders if the concentrator needs calibration b/c he's had to increase the flow rate from 3 to 4L. Over the last several days, she's become significantly more short of breath. She's been weaker and dizzy/lightheaded. She nearly fell a couple days ago, but decided to sit back down before injuring herself. She has a chronic cough, which is usually productive -- now, however, nothing is coming up. She's had sinus congestion/drainage. She denies chest pain or palpitations. She states that sometimes her right leg swells up for a couple weeks at a time then spontaneously improves - this last happened about a week ago. She has a hx of DVT and this does not feel like a DVT -- plus she's on Pradaxa for A-fib. She has not been eating much but has been drinking fluids ok. She denies dysuria but states her urine output has gone down. No constipation or diarrhea. She was seen in the ED on 12/12/17, and initial saturation was 81% on room air. She was in a-fib with RVR, rate of 134. She was tachypneic ranging from 30-40s. She was afebrile. Troponin was negative. WBC was normal at 7.4, hgb 10.8, MCV elevated at 101.8. CMP showed carbon dioxide of 31 and a slightly high calcium at 10.3, otherwise was essentially unremarkable. Pro BNP was 1890. UA was negative for UTI. Respiratory viral panel was negative. CXR showed mild interstitial prominence. Despite receiving DuoNeb x2, Solu-Medrol, and Ativan, she remained tachypneic and dyspneic. She was also given labetalol for tachycardia, which brought her rate down to 90-110s during evaluation. Dr. Stark was contacted, and Yamilex was admitted to inpatient status for acute hypoxic respiratory failure (will need BiPAP support), COPD exacerbation, and A- fib with RVR. LOS is expected to exceed 2 overnights. Objective Vital signs: Temperature 98.4 F 12/19/17 07:00 Pulse Rate 98 12/19/17 10:35 Respiratory Rate 18 12/19/17 09:36 Blood Pressure 166/109 H 12/19/17 07:00 Pulse Oximetry 88 L 12/19/17 10:35 Height/Weight/BMI: Height 1.63 m Weight 95.9 kg Body Mass Index 37.5 - Constitutional Present: no acute distress, well nourished, well developed - Routine HEENT Exam Eye: Present: PERRL. Absent: conjunctival icterus, scleral injection ENT: Present: mucous membranes moist, oropharynx clear - Routine Respiratory Exam Present: decreased breath sounds (improved), wheezes - Routine Cardiovascular Exam Present: irregularly irregular - Routine Abdominal Exam Present: soft, normoactive bowel sounds, non distended, non tender - Routine Extremities Exam Present: edema (BLE) - Routine Musculoskeletal Exam Musculoskeletal: Present: moving extremities well - Routine Skin Exam Present: intact, dry, warm - Routine Neurological Exam Present: alert, oriented X3, normal speech - Routine Psychiatric Exam Present: normal affect, normal thought process, cooperative Hospital Course This is a general summary of the patient's hospital course. For more details refer to the complete medical record. Hospital course: 12/12/17: ADMITTED TO CCU Steroids were started: Solu-Medrol 125 mg QID. Morphine/Ativan were available for air hunger. Initially she was in A-fib with RVR with rates in the 130s but her rate improved after IV labetalol. Pradaxa was continued for chronic a-fib and hx of DVT. IVF provided for hydration. Macrocytic anemia - ordered iron studies, b12, and folate. 12/13/17: Transferred to medical floor Doing well clinically, heart rate improved overnight using BiPAP which also resulted in improvement in labored respirations. No indication of pneumonia or overt heart failure; probable viral COPD exacerbation triggered by viral URI (respiratory viral panel negative but viral prodrome present) Continue IV steroids, BIPAP, and aggressive beta agonist therapy. Continue telemetry, no need for acute cardiac interventions or alteration in chronic medications for atrial fibrillation. 12/14/17 Worsening respiratory failure - Dr. Law was consulted. Steroids/breathing treatments continued. Borderline low B12 at 343, oral B12 initiated. 12/15/17 Respiratory status improving, though not tolerating CPAP for uncertain reason. PT/OT consulted. Discussed with Dr. Riley. 12/16/17 Solu-Medrol was decreased to 80 mg TID today. BP has been elevated but improved on recheck. PT recommended inpt PT, OT and SNF at discharge 12/17/17-12/18/17 BP under better control. Tolerating CPAP at night. K decreased to 3.5 and KDur has been ordered. Steroids converted to Prednisone 30 mg daily. Blood sugars have been elevated but have been decreasing corresponding with reduction in steroid dose. Ambulatory sats dropped to 82% on room air - she needs 4L with activity. Refusing home health, shelter. 12/19/17: DISCHARGE HOME Dr. Law arranged portable oxygen concentrator and Rx for home nebulizer. Continue nocturnal O2 and 4L with activity, 3L at rest, weaning to keep sats 90- 95%. Use DuoNeb at least BID for the next few days. Continue steroid taper, Prednisone 30 mg daily x3 days, 20 mg x3 days, 10 mg x3 days. Potassium level improved to 3.7. Review of prior lab also showed low iron level (24) and TIBC (225) and would recommend OTC iron. Have BMP, CBC rechecked in 1 week. F/U with Dr. Arnold in 1 week. F/U with Dr. Riley and Dr. Paiz - call for appointments. Time spent with patient: discharge greater than 30 minutes Resuscitation Status: Full Code Discharge Plan - Discharge Disposition Discharge Date: 12/19/17 Disposition: 01 Discharged Home, Self-Care *Condition: Stable Reason For Visit (Visit label in EMR): COPD exacerbation - Discharge Medications *Discharge Medications: New PredniSONE [Deltasone 10 mg] 30 mg PO WB #18 tab Ferrous Sulfate 325 mg PO WB #30 tab Albuterol/Ipratropium [Duoneb] 3 ml AEROSOL RTQID PRN #1 box PRN Reason: Shortness Of Air/Wheezing Ascorbate Calcium [Vitamin C] 500 mg PO WB #30 tab Cyanocobalamin (B-12) [Vit. B-12] 1,000 mcg PO DAILY #30 tab Continue Alendronate [Fosamax] 70 mg PO DAVILA #0 Ascorbic Acid [Vitamin C] 1,000 mg PO DAILY Aspirin [Adult Low Dose Aspirin EC] 81 mg PO HS Fluticasone [place] [Flonase] 1 spray EA NOSTRIL HS Simvastatin 20 mg PO HS Metoprolol Succinate (XL) [Toprol Xl] 50 mg PO HS Fluticasone/Salmeterol 500/50 [Advair 500-50Diskus] 1 puff INH BID Tiotropium [place] [Spiriva Respimat] 1 puff INH DAILY Levothyroxine Tab [Synthroid] 150 mcg PO HS Ondansetron HCl 8 mg PO TID PRN PRN Reason: Nausea &/Or Vomiting Cholecalciferol (Vitamin D3) [Vitamin D3] 1,000 unit PO DAILY Albuterol Sulfate [Proair Hfa] 1 puff INH Q4H PRN PRN Reason: Prn Orders Dabigatran [Pradaxa] 150 mg PO BID Montelukast Sodium [Singulair] 10 mg PO DAILY LORazepam [Lorazepam] 1 mg PO Q8H PRN PRN Reason: Prn Orders - Discharge Packet/Instructions *Diet: Regular *Activity: Use a walker. Change positions slowly. Monitor your blood pressure and discuss with Dr. Arnold if it is elevated. *Pain Management/Treatment: Tylenol if needed. *Wound Care: Not applicable. Additional Instructions: Continue nocturnal O2 and 4L with activity, 3L at rest , weaning to keep sats 90-95%. Use DuoNeb at least twice a day for the next few days. Continue steroids for your breathing, take Prednisone 30 mg daily x3 days , 20 mg x3 days, 10 mg x3 days, then stop. Your vitamin B12 level was the low- side of normal. Start taking daily Vitamin B. Your iron level was also low and we recommend taking [id number] iron tablet. You should take Vitamin C along with it to help the iron absorb. Iron may be constipating, so you may need to take a stool softener. Ensure that you are drinking plenty of fluids and eating a diet rich in vegetables and fruits. Recommend to have labs rechecked by the end of the week. CBC to follow blood counts and BMP to check potassium level (which was sometimes a little low in the hospital). *Expected Signs/Symptoms: Your breathing should continue to improve, but you should expect some ups and downs over the next several days/weeks. You may feel weak and fatigued and tired from your hospital stay. Monitor for sores in your mouth (thrush). *Notify Physician if: Increased shortness of breath, chest pain, passing out, fever or chills, vomiting or diarrhea (dehydration), stroke-like symptoms, or any new concerns. *During Business Hours Contact: Dr. Arnold's office. *After Business Hours Contact: The on-call provider for Dr. Arnold. *Pending Lab/Results: No Pending Lab Outpatient Orders: BMP - Basic Metabolic - [facility] Time Frame: 4 Days, Location: None Selected CBC w Auto [id number] Time Frame: 4 Days, Location: None Selected - Referrals/Follow Up *Referrals/Follow Up: Jaya Riley MD [Physician] - 3 Weeks Lavon Arnold MD [Family Provider] - 1 Week (PATIENT WILL MAKE APPOINTMENTS SOME ARE MADE.) Araceli Paiz MD [Physician] - 2 Weeks - Patient Handouts Patient Handouts: COPD (Chronic Obstructive Pulmonary Disease) (GEN) - Dismissal Complete Discharge Instructions are:: Complete Physician Narrative - Narrative Attestation Narrative: Date: 12/19/17 Time: 14:43 I have independently evaluated and examined this patient. I reviewed the chart, the patient's history, and the PILE [employer] ENGINEER/PA's documented findings as above. We discussed and formulated the assessment and plan as above with additions as below. In general, the patient is alert and oriented 3, cooperative with exam, and in no respiratory distress. Remains on O2. HEENT: Head is atraumatic, normocephalic, no conjunctival petechiae, no oral thrush, mucous membranes are moist and pink. Lungs: Clear to auscultation with decreased breath sounds CV: Regular rate and rhythm without murmur Abdomen: Soft, nontender, bowel sounds are present, there is no guarding no rebound. Extremities: No clubbing, no cyanosis, no edema. Skin: Warm and dry no sign of rash Neuro: Patient is alert The patient is stable for discharge. Discussed with patient and her , and questions were answered.
[2017-12-19 15:11] VITALS: BP 152/96; PULSE 94; RESP 22; TEMP 98.2; O2SAT 99
== END 2017-12-19 16:00 | disposition home or self-care (01) | DRG 190 ==
LOC: ED 14:47 → SUATTDRO 18:23 → CCU 18:23 → MED 12-13 13:27
PROVIDERS: ADMIT Internal Medicine; ATTEND Internal Medicine Infectious Disease